=== PATIENT | female | born 1965 | race Caucasian/White ===

== ENCOUNTER 2024-01-19 08:02 | Outpatient (REF) | payer SELFPAY | END 2024-01-19 08:03 | disposition home or self-care (01) | LOC: HO.HAP 08:02 | PROVIDERS: Visit Provider Family Medicine | DX: Z13.89 Encounter for screening for other disorder (principal) ==

== ENCOUNTER 2024-07-23 12:37 | Outpatient (REF) | payer SELFPAY ==
--- OUTSIDE RECORDS SUMMARY | 2024-07-23 13:10 | XMS_ITS | Clinical Summary ---
Author Organization [address] [facility] Building Address [address] [place], [place] Phone Care Team Providers Care Clerk Of Works Name Role Phone Arti Griffiths DO Primary Care Provider [phone] Allergies No known active allergies Medications atorvastatin (LIPITOR) 20 mg tabletIndications:M ixed hyperlipidemia Take 1 tablet (20 mg total) by mouth 1 (one) time each day. 90 each 1 4 11/15/19 Active Active Problems Problem Noted Date Diagnosed Date Hyperlipidemia 06/15/2021 Hypothyroidism 08/24/2020 Encounters Date Type Department Care Team Description 05/18/2024 8:15 AM EST Telemedicine Internal Medicine - [address] [phone] Kay Foreman NP Mixed hyperlipidemia (Primary Dx); Hypothyroidism, unspecified type; Encounter for colorectal cancer screening 05/14/2024 Telephone Internal Medicine - [address] [phone] Arti Griffiths DO Results from Last 3 Months Immunizations Name Administration Dates Next Due Influenza Quadravalent, MDCK , 0.5ml, preservative free (Flucelvax) 6mo and older 04/08/2022,06/06/2021 Influenza trivalent, 0.5mL, preservative free (Fluarix; FluLaval; Fluzone) ages 6mo and older (Afluria) 3 years and older 03/12/2024 Influenza, Unspecified 03/10/2023 Moderna SARS-CoV-2 COVID-19, mRNA, LNP-S, preservative free 03/12/2024,07/19/2022,10/22/2021,2020,10/09/2020 Pfizer SARS-CoV-2 COVID-19, mRNA, LNP-S, preservative free 03/10/2023 Tdap Tetanus diptheria acell ular pertussis (Boostrix; Adacel) 7yo and older 06/18/2021,05/03/2011 Zoster recombinant (Shingrix ) 19yo and older 08/31/2021,06/11/2021 Surgical History Surgery Date Site/Laterality Comments HYSTERECTOMY 2003 PROCEDURE: HISTORICAL HYSTERECTOMY; COMMENT: Fibroids TUBAL LIGATION 1990 PROCEDURE: HISTORICAL TUBAL LIGATION OTHER SURGICAL HISTORY PROCEDURE: ME LIGJ DIVJ & STRIPPING SHORT SAPHENOUS VEIN CERVICAL BIOPSY W/ LOOP ELECTRODE EXCISION PROCEDURE: ME CONIZATION CERVIX W/WO D&C RPR ELTRD EXC; COMMENT: No cancer COLONOSCOPY 02/07/2015 PROCEDURE: HISTORICAL COLONOSCOPY Medical History Medical History Date Comments History of uterine fibroid DX:Hi story of uterine fibroid History of anemia DX:History of anemia; COMMENT: during HSV-2 infection DX:HSV-2 infecti on Bilateral hearing loss 04/16/2017 DX:Bilate ral hearing loss Varicose vein of leg 04/16/2017 DX:Varicose vein of leg Depression 05/14/2017 DX:Depression; C OMMENT: situational Meniere disease 05/14/2017 DX:Meniere disea se Abnormal Pap smear of cervix 05/14/2017 DX: Abnormal Pap smear of cervix; COMMENT: S/p colposcopy with leep Family History Medical History Relation Name Comments Other: MVA Brother 1 Other: Hyperlipidemia Brother 2 No Known Problems Brother 3 No Known Problems Brother 4 Depression Daughter Other: epilepsy Daughter Heart attack Father Colon cancer Mother Hypertension Mother Hyperthyroidism Mother Other: Myelofibrosis Mother S/p spl enectomy Diabetes Paternal Grandmother Depression Son Breast cancer Neg Hx Ovarian cancer Neg Hx Relation Name Status Comments Brother 1 Brother 2 Alive Brother 3 Alive Brother 4 Alive Daughter Alive Father Mother Paternal Grandmother Son Alive Social History Tobacco Use Types Packs/Day Years Used Date Smoking Tobacco: Never Smokeless Tobacco: Never Alcohol Use Standard Drinks/Week Comments Yes 0 (1 standard drink = 0.6 oz pur e alcohol) Housing Instability Answer Date Recorde d Are you worried that in the next 2 months you may not have stable housing? No 07/07/2024 Food Access & Nutrition Answer Date Rec orded Do you have access to a vari ety of food including fruits and vegetables? Yes 07/07/2024 Access to Healthcare Answer Date Record ed Within the last 3 months, ho w many times did you visit the emergency department for your medical care? 0 05/15/2024 Health Literacy Answer Date Recorded How often do you need to hav e someone help you when you read instructions, pamphlets, or other written material from your doctor or pharmacy? Never 05/15/2024 Caregiver: How often do you need to have someone help you when you read instructions, pamphlets, or other written material from your doctor or pharmacy? Not on file 05/15/2024 Financial Risk Answer Date Recorded How hard is it for you to pa y for the very basics like food, housing, medical care, and air conditioning / heating? Not very hard 07/07/2024 Transportation Answer Date Recorded Has the lack of transportati on kept you from meetings, work, or from getting things needed for daily living? No Has the lack of transportati on kept you from medical appointments or from getting medications? No 07/07/2024 Social Isolation Answer Date Recorded How often do you feel lonely or isolated from th ose around you? Never 05/15/2024 Food Risk Answer Date Recorded Within the past 12 months we worried whether our food would run out before we got money to buy more. Never true 07/07/2024 Within the past 12 months th e food we bought just didn't last and we didn't have money to get more. Never true 07/07/2024 Dependent Care Answer Date Recorded Do you need help finding or paying for care for your loved ones. For example, child nurse or elderly care for an older adult? No 05/15/2024 Education Answer Date Recorded Do you think completing more education or training, like finishing a GED, going to college, or learning a trade, would be helpful for you? No 05/15/2024 Employment and Income Answer Date Recor ded During the last four weeks, have you been actively looking for work? No 05/15/2024 Living Situation Answer Date Recorded What is your living situation? 0 07/07/2024 Comments Unknown Sex and Gender Information Value Date Recorded Sex Assigned at Not on file Legal Sex Female 11:33 PM EST Gender Identity Not on file Sexual Orientation Not on file Obstetrics History Last Filed Vital Signs Vital Sign Reading Time Taken Comments Blood Pressure 97/74 01/26/2024 1:04 PM EDT Pulse 73 01/26/2024 1:04 PM EDT Temperature - - Respiratory Rate - - Oxygen Saturation - - Inhaled Oxygen Concentration - - Weight 64.7 kg (142 lb 9.6 oz) 01/26/2024 1:04 P M EDT Height 162.6 cm (5' 4 ) 01/26/2024 1:04 PM EDT Body Mass Index 24.48 01/26/2024 1:04 PM EDT Plan of Treatment Upcoming Encounters Date Type Department Care Team (Late st Contact Info) Description 01/14/2025 8:00 AM EDT Office Visit [facility] [address] [place] [phone] Yaya Carcamo PA [address] [place] [address] 01/18/2025 9:00 AM EDT Appointment [facility] Endoscopy [address] [place] [phone] Yandel Bernstein MD [address] [address] Health Maintenance Due Date Last Done Comments Hepatitis B Vaccines (1 of 3 - 19+ 3-dose series) 01/06/1984 Cervical Cancer Screening: Pap Smear 1986 Colorectal Cancer Screening: Colonoscopy 05/12/2022 COVID-19 Vaccine ( season) 2024 03/12/2024, 03/10/2023, 03/07/2023, Additional history exists Depression Screening 07/07/2025 07/07/2024 Social Influencers of Health Screening 07/07/2025 07/07/2024 Breast Cancer Screening 02/16/2026 02/17/20, 02/12/2023, 01/25/2021, Additional history exists Cholesterol Screening (Lipid Panel) 03/12/2029 03/12/2024, 01/26/2024 DTaP,Tdap,and Td Vaccines (3 - Td or Tdap) 06/18/2031 06/18/2021, 05/03/2011 RSV Immunization Patients 60+ Years Old (1 - 1-dose 75+ series) 01/06/2040 Zoster Vaccines Completed 08/31/2021, 07/31, 06/11/2021 Influenza Vaccine Completed 03/12/2024, , 03/07/2023, Additional history exists Pneumococcal Vaccine: 50+ Years Completed 07/02/2024 Pneumococcal Vaccine: Pediatrics (0 to 5 Years) and At-Risk Patients (6 to 64 Years) Aged Out 07/02/2024 No longer eligible based on patient's age to complete this topic HIB Vaccines Aged Out No longer eligi ble based on patient's age to complete this topic HIV Screening Discontinued HPV Vaccines Aged Out No longer eligi ble based on patient's age to complete this topic Hepatitis A Vaccines Aged Out No long er eligible based on patient's age to complete this topic Hepatitis C Screening Discontinued IPV Vaccines Aged Out No longer eligi ble based on patient's age to complete this topic MMR Vaccines Aged Out No longer eligi ble based on patient's age to complete this topic Meningococcal ACWY Vaccine Aged Out N o longer eligible based on patient's age to complete this topic Meningococcal B Vacine Aged Out No lo nger eligible based on patient's age to complete this topic RSV Immunization Patients Under 20 months Aged Out No longer eligible based on patient's age to complete this topic Varicella Vaccines Aged Out No longer eligible based on patient's age to complete this topic Procedures Procedure Name Priority Date/Time Associated Diagnosis Comments TRIIODOTHYRONINE FREE Routine 06/25/2024 9:49 AM EST Hypothyroidism, unspecified type FREE THYROXINE WITH REFLEX TO FREE TRIIODOTHYRONINE Routine 06/25/2024 9:49 AM EST Hypothyroidism, unspecified type THYROID STIMULATING HORMONE WITH REFLEX TO FREE T4 AND FREE T3 Routine 06/25/2024 9:49 AM EST Hypothyroidism, unspecified type COMPREHENSIVE METABOLIC PANEL Routine 06/25/2024 9:49 AM EST Mixed hyperlipidemia KATIA SCREENING DIGITAL Routine 02/17/2024 1:36 PM EDT Encounter for screening mammogram for malignant neoplasm of breast from Last 3 Months or Most Recently Relevant to Health Maintenance Results * (ABNORMAL) Thyroid stimulating hormone with reflex to free t4 and free t3 (06/25/2024 9:49 AM EST) TSH 4.52(H) 0.40 - 4.00 mcIU/mL LAB CHEMISTRY METHOD 06/25/2024 5:00 PM EST [facility] Blood Venous blood specimen / Unknown Venipuncture / Unknown 06/25/2024 9:49 AM EST 06/25/2024 9:49 AM EST us Kay Foreman NP LAB BLOOD ORDERABLES Final Resul t Performing Organization Address [facility]/ZIP Co de Phone Number [facility] [address] [place] [address], [place] [phone] * Free thyroxine with reflex to free triiodothyronine (06/25/2024 9:49 AM EST) Free T4 0.87 0.70 - 1.80 ng/dL LAB CHEMISTRY METHOD 06/25/2024 5:25 PM EST [facility] Blood Venous blood specimen / Unknown Venipuncture / Unknown 06/25/2024 9:49 AM EST 06/25/2024 9:49 AM EST us Kay Foreman NP LAB BLOOD ORDERABLES Final Resul t [facility] [address] [place] [address], * Triiodothyronine free (06/25/2024 9:49 AM EST) T3, Free 283 230 - 420 pcg/dL LAB CHEMISTRY METHOD 06/25/2024 5:[address] [facility] Blood Venous blood specimen / Unknown Venipuncture / Unknown 06/25/2024 9:49 AM EST 06/25/2024 9:49 AM EST Kay Foreman NP LAB BLOOD ORDERABLES Final Resul t [facility] [address] [place] [address], * Comprehensive metabolic panel (06/25/2024 9:49 AM EST) [facility] Sodium 136 133 - 145 mmol/L LAB CHEMISTRY METHOD 06/25/2024 5:[address] [facility] Potassium 4.0 3.5 - 5.5 mmol/L LAB CHEMISTRY METHOD 06/25/2024 5:[address] [facility] Chloride 101 96 - 110 mmol/L LAB CHEMISTRY METHOD 06/25/2024 5:[address] [facility] CO2 31 21 - 32 mmol/L LAB CHEMISTRY METHOD 06/25/2024 5:[address] [facility] Anion Gap 4 3 - 11 LAB CHEMISTRY METHOD 06/25/2024 5:[address] [facility] Glucose 93 70 - 100 mg/dL LAB CHEMISTRY METHOD 06/25/2024 5:[address] [facility] BUN 12 5 - 25 mg/dL LAB CHEMISTRY METHOD 06/25/2024 5:[address] [facility] Creatinine 0.56 0.50 - 1.10 mg/dL LAB CHEMISTRY METHOD 06/25/2024 5:[address] [facility] eGFR 105 >=60 mL/min/1. 73m2 LAB CHEMISTRY METHOD 06/25/2024 5:[address] [facility] Comment:Calculation based on the??Chronic Kidney Disease Epidemiology Collaboration (CKD-EPI) equation refit??without adjustment for race. BUN/Creatinine Ratio 21.4 LAB CHEMISTRY METHOD 06/25/2024 5:[address] [facility] Calcium 9.0 8.5 - 10.5 mg/dL LAB CHEMISTRY METHOD 06/25/2024 5:[address] [facility] AST (SGOT) 22 10 - 42 unit/L LAB CHEMISTRY METHOD 06/25/2024 5:[address] [facility] ALT (SGPT) 24 10 - 60 unit/L LAB CHEMISTRY METHOD 06/25/2024 5:[address] [facility] Alkaline Phosphatase 55 42 - 121 unit/L LAB CHEMISTRY METHOD 06/25/2024 5:[address] [facility] Total Protein 7.1 6.0 - 8.0 g/dL LAB CHEMISTRY METHOD 06/25/2024 5:[address] [facility] Albumin 4.3 3.2 - 5.0 g/dL LAB CHEMISTRY METHOD 06/25/2024 5:[address] [facility] Total Bilirubin 0.6 0.0 - 1.4 mg/dL LAB CHEMISTRY METHOD 06/25/2024 5:[address] [facility] Blood Venous blood specimen / Unknown Venipuncture / Unknown 06/25/2024 9:49 AM EST 06/25/2024 9:49 AM EST us Kay Foreman NP LAB BLOOD ORDERABLES Final Resul t [facility] [address] [place] [address], * KATIA SCREENING DIGITAL (02/17/2024 1:36 PM EDT) Anatomical Region Laterality Modality Mammography 02/17/2024 7:43 AM EDT Narrative 02/17/2024 1:36 PM EDT [facility] Diagnostic Imaging Department [address] [place] [address] Patient: ??JAZMIN JACK ?/Age/Sex: 1965 - 59 - F Unit#: ??[id number] ? Location/Status: ??SPDIMAM/REG CLI ? Mnemonic/Ordering Site: ??DIGSC/SPMAM Ordering Physician: ??PATSY LEON MD Katia Screening Digital - 02/17/24 - Report Status:Signed EXAM: [facility] Screening Digital EXAM DATE AND TIME: 02/17/2024 8:54 AM HISTORY: ??Screening. 30 pound weight loss. COMPARISON: ??02/12/23, 02/08/22, 08/03/21, 01/25/21, 01/20/20 TECHNIQUE: Bilateral digital breast tomosynthesis was performed in the CC and MLO projections. Computer aided detection with [employer] 3D 3.1 was employed. TISSUE DENSITY: b. There are scattered areas of fibroglandular density. FINDINGS: A small area of possible architectural distortion is seen in the upper outer left breast, anterior depth. CC and MLO spot compression tomosynthesis views and full lateral tomosynthesis views are recommended for further assessment. No grouped microcalcifications are seen. The skin and vascularity are unremarkable. IMPRESSION: 1. Possible architectural distortion in the left breast, for which additional views are recommended. The patient will be called back. 2. Stable mammographic appearance of the right breast. No evidence of malignancy is seen. BI-RADS: ??Category 0: Incomplete - Need Additional Imaging Evaluation RECOMMENDATION(S): 1: Special mammographic view(s) needed LEFT Mammogram performed at [facility] [place] [address] Dictating Physician: ??DESTINY HERNANDES MD Electronically Signed by: ??DESTINY HERNANDES MD Dic Date/Time: ??02/17/24 1332 Sign date/Time: ??02/17/24 1336 Procedure Note Destiny Hernandes MD - 03/17/2024 [facility] Diagnostic Imaging Department [address] [place] [address] Patient: JAZMIN JACK Myriam /Age/Sex: 1965 - 59 - F Unit#: [id number] Location/Status: [facility] CLI Mnemonic/Ordering Site: [facility] Ordering Physician: PATSY LEON MD [facility] Screening Digital - 02/17/24 - Report Status:Signed EXAM: [facility] Screening Digital EXAM DATE AND TIME: 02/17/2024 8:54 AM HISTORY: Screening. 30 pound weight loss. COMPARISON: 02/12/23, 02/08/22, 08/03/21, 01/25/21, 01/20/20 TECHNIQUE: Bilateral digital breast tomosynthesis was performed in the CCand MLO projections. Computer aided detection with iCAD [employer] AI 3D 3.1was employed. TISSUE DENSITY: b. There are scattered areas of fibroglandular density. FINDINGS: A small area of possible architectural distortion is seen in the upperouter left breast, anterior depth. CC and MLO spot compression tomosynthesisviews and full lateral tomosynthesis views are recommended for further assessment. No grouped microcalcifications are seen. The skin and vascularity are unremarkable. IMPRESSION: 1. Possible architectural distortion in the left breast, for whichadditional views are recommended. The patient will be called back. 2. Stable mammographic appearance of the right breast. No evidence of malignancy is seen. BI-RADS: Category 0: Incomplete - Need Additional Imaging Evaluation RECOMMENDATION(S): 1: Special mammographic view(s) needed LEFT Mammogram performed at [facility] [place] [address] Dictating Physician: DESTINY HERNANDES MD Electronically Signed by: DESTINY HERNANDES MD Dic Date/Time: 02/17/24 1332 Sign date/Time: 02/17/24 1336 Patsy Loen MD IMG BI PROCEDURES Final Result from Last 3 Months or Most Recently Relevant to Health Maintenance [place] [address] [address] [place] [address] Care Teams Clerk Of Works Relationship Specialty Start Date End Date Liset GriffithsmanDO myriam [address] [place] [address] PCP - General 03/09/24
== END 2024-07-23 12:38 | disposition home or self-care (01) ==
LOC: HO.HAP 12:37
PROVIDERS: Visit Provider Family Medicine
DX: Z13.89 Encounter for screening for other disorder (principal)

== ENCOUNTER 2024-10-21 09:27 | Outpatient (REF) | payer SELFPAY ==
--- OUTSIDE RECORDS SUMMARY | 2024-10-21 09:43 | XMS_ITS | Clinical Summary ---
Author Organization [address] [facility] Building Address [address] [place], [place] Phone Care Team Providers Care Audience Coordinator Name Role Phone Arti Griffiths DO Primary Care Provider [phone] Allergies No known active allergies Medications atorvastatin (LIPITOR) 20 mg tabletIndications:M ixed hyperlipidemia Take 1 tablet (20 mg total) by mouth 1 (one) time each day. 90 each 1 4 11/15/19 Active Active Problems Problem Noted Date Diagnosed Date Hyperlipidemia 06/15/2021 Hypothyroidism 08/24/2020 Encounters Date Type Department Care Team Description 10/15/2024 Telephone Internal Medicine - [address] [phone] Arti Griffiths DO orders from Last 3 Months Immunizations Name Administration [...] HISTORICAL TUBAL LIGATION OTHER SURGICAL HISTORY PROCEDURE: LA LIGJ DIVJ & STRIPPING SHORT SAPHENOUS VEIN CERVICAL BIOPSY W/ LOOP ELECTRODE EXCISION PROCEDURE: LA CONIZATION CERVIX W/WO D&C RPR ELTRD EXC; [...] for your loved ones. For example, child care worker or elderly care for an older adult? [...] Description 01/14/2025 8:00 AM EDT [facility] [address] [place] [phone] Yaya Carcamo PA [address] [place] [address] 01/18/2025 9:[address] [facility] Endoscopy [address] [place] [phone] Yandel Bernstein MD [address] [address] Health Maintenance Due Date Last Done Comments Hepatitis B Vaccines (1 of 3 - 19+ 3-dose series) 01/06/1984 Cervical Cancer Screening: Pap Smear 1986 Colorectal Cancer Screening: Colonoscopy 05/12/2022 COVID-19 Vaccine ( season) 2024 03/12/2024, 03/10/2023, 03/07/2023, Additional history exists Depression Screening 07/07/2025 07/07/2024 Social Influencers of Health Screening 07/07/2025 07/07/2024 Breast Cancer Screening 02/16/2026 02/17/20 24, 02/12/2023, 01/25/2021, Additional history exists Cholesterol Screening (Lipid Panel) 03/12/2029 03/12/2024, 01/26/2024 DTaP,Tdap,and Td Vaccines (3 - Td or Tdap) 06/18/2031 06/18/2021, 05/03/2011 RSV Immunization Adult Patients (1 - 1-dose 75+ series) 01/06/2040 Zoster [...] age to complete this topic Meningococcal B Vaccine Aged Out No l onger eligible based on patient's age to complete this topic RSV Immunization Patients Under 20 months Aged Out No longer eligible based on patient's age to complete this topic Varicella Vaccines Aged Out No longer eligible based on patient's age to complete this topic Procedures Procedure Name Priority Date/Time Associated Diagnosis Comments [facility] SCREENING DIGITAL Routine 02/17/2024 1:36 PM EDT Encounter for screening mammogram for malignant neoplasm of breast from Last 3 Months or Most Recently Relevant to Health Maintenance Results * KATIA SCREENING DIGITAL (02/17/2024 1:36 PM EDT) Anatomical Region Laterality Modality Mammography 02/17/2024 7:43 AM EDT Narrative 02/17/2024 1:[address] [facility] Diagnostic Imaging Department [address] [place] [address] Patient: ??HARMONY JACK ?/Age/Sex: 1965 - 59 - F Unit#: ??[id number] ? Location/Status: ??SPDIMAM/REG CLI ? Mnemonic/Ordering Site: ??DIGSC/SPMAM Ordering Physician: ??JAYRO LEON MD Katia Screening Digital - 02/17/24 - Report Status:Signed EXAM: [facility] Screening Digital EXAM DATE AND TIME: 02/17/2024 8:54 AM HISTORY: ??Screening. 30 pound weight loss. COMPARISON: ??02/12/23, 02/08/22, 08/03/21, 01/25/21, 01/20/20 TECHNIQUE: Bilateral digital breast tomosynthesis was performed in the CC and MLO projections. Computer aided detection with [employer] 3D 3.1 was employed. TISSUE DENSITY: b. [...] Mamm[facility] at [facility] [address] [place] [address] Dictating Physician: ??JOVANA HERNANDES MD Electronically Signed by: ??JOVANA HERNANDES MD Dic Date/Time: ??02/17/24 1332 Sign date/Time: ??02/17/24 1336 Procedure Note Jovana Hernandes MD - 03/17/2024 [facility] Diagnostic Imaging Department [address] [place] [address] Patient: HARMONY JACK Karsten /Age/Sex: 1965 - 59 - F Unit#: [id number] [facility]Ordering Site: [facility] Ordering Physician: JAYRO LEON MD [facility] Screening Digital - 02/17/24 - Report Status:Signed EXAM: [facility] Screening Digital EXAM DATE AND TIME: 02/17/2024 8:54 AM HISTORY: Screening. 30 pound weight loss. COMPARISON: 02/12/23, 02/08/22, 08/03/21, 01/25/21, 01/20/20 TECHNIQUE: Bilateral digital breast tomosynthesis was performed in the CCand MLO projections. Computer aided detection with iCAD [employer] AI 3D 3.1was employed. TISSUE DENSITY: b. [...] Mamm[facility] performed at [facility] [address] [address] Dictating Physician: JOVANA HERNANDES MD Electronically Signed by: JOVANA HERNANDES MD Dic Date/Time: 02/17/24 1332 Sign date/Time: 02/17/24 1336 Jayro Leon MD IMG BI PROCEDURES Final Result from Last 3 Months or Most Recently Relevant to Health Maintenance Insurance [facility] Care Teams Audience Coordinator Relationship Specialty Start Date End Date Arti Griffiths DO [address] [place] [address] PCP - General 03/09/24
--- OUTSIDE RECORDS SUMMARY | 2024-10-21 09:43 | XMS_ITS | Encounter Summary ---
Author Organization [facility] Address [address] [place] [address] Care Team Providers Care Pest Control Operator Name Role Phone Arti Griffiths DO Primary Care Provider [phone] Reason for Referral * Consultation (Routine) - Closed Specialty Diagnoses / Procedures Referred By Yasmeen lockwood Referred To Contact Audiology Diagnoses Encounter for hearing examination, unspecified whether abnormal findings Kay Foreman NP [address] [place] [address] Phone: tel: fax: [facility] - Audiology [address] [address] Phone: tel: fax: Referral ID Status Reason Start Date Expiration Date V isits Requested Visits Authorized [id number] Closed Specialty Services Required 10/15/2024 10/15/2025 1 1 Reason for Visit * Reason Onset Date Comments orders 10/15/2024 Encounter Details Date Type Department Care Team (Late st Contact Info) Description 10/15/2024 [facility] [address] [place] [phone] Arti Griffiths DO [address] [place] [address] orders Social History Tobacco Use Types Packs/Day Years [...] care for your loved ones. For example, childcare director or elderly care for an older adult? [...] on file Sexual Orientation Not on file documented as of this encounter Progress Notes * Kay Foreman NP - 10/15/2024 11:55 AM EDT Signed * Afua Finley MA - 10/15/2024 9:44 AM EDT Referral pending. * Elvi Portillo - 10/15/2024 9:35 AM EDT Pt is requesting orders for hearing test and ear cleaning. [facility] please fax to [phone] attn. Maria Elena. any questions please call pt at [phone] documented in this encounter Plan of Treatment Upcoming Encounters Date Type Department Care Team (Late st Contact Info) Description 01/14/2025 8:00 AM EDT Office Visit Internal Medicine - [facility] [address] [place] [address] Yaya Carcamo PA [address] [place] [address] 01/18/2025 9:00 AM EDT Appointment [facility] Endoscopy [address] [place] [phone] Yandel Bernstein MD [address] [place] [address] Scheduled Referrals Name Type Priority Associated Diagnoses Order Schedule Ambulatory referral to Audiology Outpatient Referral Routine Encounter for hearing examination, unspecified whether abnormal findings 1 Occurrences starting 10/15/2024 until 10/15/2025 documented as of this encounter Visit Diagnoses Diagnosis Encounter for hearing examination, unspecified whether abnormal findings- Primary documented in this encounter Additional Health Concerns Assessment Noted Time PHQ-9 Depression Total Score: 0 07/07/19 25 12:44 PM EST documented as of this encounter Care Teams Pest Control Operator Relationship Specialty Start Date End Date Arti Griffiths DO [address] [place] [address] PCP - General 03/09/24 documented as of this encounter
--- NOTE | 2024-10-21 10:05 | MHC.AU.HA3 ---
Hearing Instrument Follow-Up- Binaural Date of Visit: 10/21/24 Right Ear: Reji, Model, Color, Serial Number: Seven [id number] R, harley layton S#[id number] Broom Worker Repair Warranty: 01/13/2027 Broom Worker Loss and Damage Warranty: 01/13/2027 [facility] Service Plan: 12/31/24 Battery Size: Rechargeable Rental Car Deliverer/Slim Tube: 1 M Earmold/Dome/CShell/SlimTip:canal lock slimtip S#[id number] Warranty 04/13/2024 Type of Wax Guard: cerustop Dispensed By: [facility] Date of Fittin01/01/24 Left Ear: Reji, , Color, Serial Number: Seven Pandao [id number] R, harley layton [id number] Broom Worker Repair Warranty: 01/13/2027 Broom Worker Loss and Damage Warranty: 01/13/2027 [facility] Service Plan: 12/31/24 Battery Size: Rechargeable Rental Car Deliverer/Slim Tube: 1 M Earmold/Dome/CShell/SlimTip: canal lock slimtip [id number] Warranty 04/13/2024 Type of Wax Guard: cerustop Dispensed By: [facility] Date of Fittin01/01/24 Follow-Up Summary: Jazmin reports feeling that something is wrong with the bluetooth, finds streaming coming through louder on the left which is a problem as that is her worse ear and hearing is less clear. Cleaned and checked aids, replaced wax guards. Found right medical record retrieval specialist defective. Replaced medical record retrieval specialist. Listening check positive both sides. Increased overall gain slightly at pt request. Improvement reported. Tested streaming, much better. Recommendations: Recommendations: Hearing instrument follow-up or maintenance as needed. Diagnosis Code(s): Primary Diagnosis: H90.3 Bilateral Sensorineural Hearing Loss Signature: Provider: Angelica Cameron, [facility]
== END 2024-10-21 09:28 | disposition home or self-care (01) ==
LOC: HO.HAP 09:27
PROVIDERS: Visit Provider Family Medicine
DX: Z46.1 Encounter for fitting and adjustment of hearing aid (principal); H90.3 Sensorineural hearing loss, bilateral
CPT/HCPCS: V5267

== ENCOUNTER 2024-11-04 08:06 | Outpatient (REF) | payer BC, SELFPAY ==
--- OUTSIDE RECORDS SUMMARY | 2024-11-04 08:15 | XMS_ITS | Encounter Summary ---
Author Organization [facility] Address [address] [place] [address] Care Team Providers Care Oil Heat Technician Name Role Phone Arti Griffiths DO Primary Care Provider [phone] Reason for Referral * Consultation (Routine) - Closed Specialty Diagnoses / Procedures Referred By Yasmeen lockwood Referred To Contact Audiology Diagnoses Encounter for hearing examination, unspecified whether abnormal findings Kay Foreman NP [address] [place] [address] Phone: tel: fax: [facility] - Audiology [address] [address] Phone: tel: fax: Referral ID Status Reason Start Date Expiration Date V isits Requested Visits Authorized [id number] Closed Specialty Services Required 10/15/2024 10/15/2025 1 1 Reason for Visit * Reason Onset Date Comments orders 10/15/2024 Encounter Details Date Type Department Care Team (Late st Contact Info) Description 10/15/2024 [facility] [address] [place] [phone] Arti Griffiths DO [address] [place] [address] orders Social History Tobacco Use Types Packs/Day [...] for your loved ones. For example, child health associate or elderly care for an older adult? [...] orders for hearing test and ear cleaning. [facility] please fax to [phone] attn. Maria Elena. any questions please call pt at [phone] documented in this encounter Plan of Treatment Upcoming Encounters Date Type Department Care Team (Late st Contact Info) Description 01/14/2025 8:00 AM EDT Office Visit Internal Medicine - [facility] [address] [place] [address] Yaya Carcamo PA [address] [place] [address] 01/18/2025 9:00 AM EDT Appointment [facility] Endoscopy [address] [place] [phone] Yandel Bernstein MD [address] [place] [address] Scheduled Referrals Name Type Priority Associated Diagnoses [...] documented as of this encounter Care Teams Oil Heat Technician Relationship Specialty Start Date End Date Arti Griffiths DO [address] [place] [address] PCP - General 03/09/24 documented as of this encounter
== END 2024-11-04 08:07 | disposition home or self-care (01) ==
LOC: HO.SH 08:06
PROVIDERS: Visit Provider Nurse Practitioner
DX: Z01.118 Encounter for examination of ears and hearing with other abnormal findings (principal); H90.3 Sensorineural hearing loss, bilateral
CPT/HCPCS: 92552; 92556

== ENCOUNTER 2025-02-04 08:00 | Outpatient (REF) | payer SELFPAY ==
--- OUTSIDE RECORDS SUMMARY | 2025-02-04 08:03 | XMS_ITS | Clinical Summary ---
Author Organization [place] [address] [facility] Building Address [address] [facility] [place] [address] Phone Care Team Providers Care Keno Writer/Runner Name Role Phone TundeArti Primary Care Provider [phone] Allergies No known active allergies Medications polyethylene glycol (Golytely) 236-22.74-6.74 -5.86 gram solution Take 4L by mouth once for one dose. May substitue any PEG. Starting at 2PM the day before your procedure drink 1 8oz glasses at your own pace until you complete half of the gallon. Finish 2nd half of the gallon at 8PM. 4000 mL 025 Active bisacodyL (DULCOLAX) 5 mg EC tablet Take 2 tablets by mouth right before beginning bowel prep. See instructions provided by the office 2 tablet 025 Active PEG 3350 (GLYCOLAX/MIRALAX ) 4 gram packet Take by mouth. Active atorvastatin (LIPITOR) 20 mg tabletIndications :Mixed hyperlipidemia TAKE 1 TABLET (20 MG TOTAL) BY MOUTH ONCE DAILY 90 tablet 1 025 Active atorvastatin (LIPITOR) 20 mg tabletIndications :Mixed hyperlipidemia TAKE 1 TABLET (20 MG TOTAL) BY MOUTH ONE TIME EACH DAY 30 tablet 025 2024 Discontinued Active Problems Problem Noted Date Diagnosed Date Hyperlipidemia 06/15/2021 Hypothyroidism 08/24/2020 Encounters Date Type Department Care Team Description 01/14/2025 8:48 AM EDT - 01/14/2025 11:59 PM EDT Hospital Encounter [facility] [address] [place], [place] [phone] Neck stiffness Discharge Disposition: Home or Self Care 01/14/2025 8:00 AM EDT [facility] [address] [place], [place] [phone] Yaya Carcamo PA Encounter for screening mammogram for malignant neoplasm of breast (Primary Dx); Mixed hyperlipidemia; Hypothyroidism, unspecified type; Neck stiffness; Health maintenance examination 01/13/2025 9:27 AM EDT Anesthesia Event [facility] [address] [place] [address] Pancho Sheriff DO 01/13/2025 7:53 AM EDT - 01/13/2025 11:59 PM EDT Hospital Encounter [facility] End[facility] [address] [place] [address] Yandel Bernstein MD Steele, Matthew G, CRNA Korobkov, Vitaliy, DO Colon cancer screening Discharge Disposition: Home or Self Care from Last 3 Months Immunizations Name Administration [...] HISTORICAL TUBAL LIGATION OTHER SURGICAL HISTORY PROCEDURE: [place] LIGJ DIVJ & STRIPPING SHORT SAPHENOUS VEIN CERVICAL BIOPSY W/ LOOP ELECTRODE EXCISION PROCEDURE: [place] CONIZATION CERVIX W/WO D&C RPR ELTRD EXC; [...] of cervix; COMMENT: S/p colposcopy with leep Seizures (CMS/[facility] V24, CMS/[facility] V28) as a child Arthritis Family History Medical History Relation Name Comments [...] Date Smoking Tobacco: Never Smokeless Tobacco: Never Tobacco Cessation:Counseling Given: Not Answered Alcohol Use Standard Drinks/Week Comments Yes 0 [...] What is your living situation? 0 07/07/2024 Interpersonal Safety Answer Date Record ed Physical Abuse 01/13/2025 Verbal Abuse 01/13/2025 Comments No Sex and Gender Information Value Date Recorded Sex Assigned at Female 01/13/2025 7:50 AM EDT Legal Sex Female 11:33 PM EST Gender Identity Female 01/13/2025 7:50 AM EDT Sexual Orientation Straight 01/13/2025 7: 50 AM EDT Obstetrics History Last Filed Vital Signs Vital Sign Reading Time Taken Comments Blood Pressure 110/66 01/14/2025 7:54 AM EDT Pulse 67 01/14/2025 7:54 AM EDT Temperature 36.2 C (97.2 F) 01/13/2025 9:43 AM EDT Respiratory Rate 16 01/14/2025 7:54 AM EDT Oxygen Saturation 99% 01/13/2025 10:03 AM EDT Inhaled Oxygen Concentration - - Weight 62.7 kg (138 lb 3.2 oz) 01/14/2025 7:54 A M EDT Height 162.6 cm (5' 4 ) 01/13/2025 8:46 AM EDT Body Mass Index 23.72 01/13/2025 8:46 AM EDT Plan of Treatment Upcoming Encounters Date Type Department Care Team (Late st Contact Info) Description 02/15/2025 7:30 AM EDT Evaluation [address] [phone] Juliana Montero, PT 07/19/2025 8:30 AM EST Office Visit Internal Medicine - [facility] [address] [place] [phone] Yaya Carcamo PA [address] [place] [address] Health Maintenance Due Date Last Done Comments Cervical Cancer Screening: Pap Smear 1986 COVID-19 Vaccine ( season) 2025 03/12/2024, 03/10/2023, 03/07/2023, Additional history exists Influenza Vaccine (#1) 2025 , 03/10/2023, 03/07/2023, Additional history exists Social Influencers of Health Screening 07/07/2025 07/07/2024 Breast Cancer Screening 02/16/2026 02/17/20 24, 02/12/2023, 01/25/2021, Additional history exists Cholesterol Screening (Lipid Panel) 01/14/2030 01/14/2025, 03/12/2024, 01/26/2024 DTaP,Tdap,and Td Vaccines (3 - Td or Tdap) 06/18/2031 06/18/2021, 05/03/2011 Colorectal Cancer Screening: Colonoscopy 01/13/2035 01/13/2025 RSV Immunization Adult Patients (1 - 1-dose 75+ series) 01/06/2040 Zoster Vaccines Completed 08/31/2021, 07/31, 06/11/2021 Pneumococcal Vaccine: 50+ Years Completed 07/02/2024 Depression Screening Completed 07/07/2024 HIB Vaccines Aged Out No longer eligi ble based on patient's age to complete this topic HIV Screening Discontinued HPV Vaccines Aged Out No longer eligi ble based on patient's age to complete this topic Hepatitis A Vaccines Aged Out No long er eligible based on patient's age to complete this topic Hepatitis B Vaccines Aged Out No long er eligible [...] Procedure Name Priority Date/Time Associated Diagnosis Comments XR CERVICAL SPINE 4-5 VIEWS Routine 01/14/2025 8:57 AM EDT Neck stiffness TRIIODOTHYRONINE FREE Routine 01/14/2025 8:45 AM EDT Hypothyroidism, unspecified type FREE THYROXINE WITH REFLEX TO FREE TRIIODOTHYRONINE Routine 01/14/2025 8:45 AM EDT Hypothyroidism, unspecified type LIPID PANEL WITH REFLEX TO DIRECT LDL Routine 01/14/2025 8:45 AM EDT Mixed hyperlipidemia COMPREHENSIVE METABOLIC PANEL Routine 01/14/2025 8:45 AM EDT Mixed hyperlipidemia THYROID STIMULATING HORMONE WITH REFLEX TO FREE T4 AND FREE T3 Routine 01/14/2025 8:45 AM EDT Hypothyroidism, unspecified type COLONOSCOPY Routine 01/13/2025 9:42 AM EDT Colon cancer screening KATIA SCREENING DIGITAL Routine 02/17/2024 1:36 PM EDT Encounter for screening mammogram for malignant neoplasm of breast from Last 3 Months or Most Recently Relevant to Health Maintenance Results * XR Cervical Spine 4-5 Views (01/14/2025 8:57 AM EDT) Anatomical Region Laterality Modality Spine, C-spine Radiographic Sissy ging 01/14/2025 9:00 AM EDT Impressions 01/14/2025 9:04 AM EDT Multilevel degenerative changes. POS - [id number] -------- FINAL REPORT -------- Dictated By: Anna Roger Dictated Date: 01/14/2025 09:00 ET Assigned Physician: Anna Roger Reviewed and Electronically Signed By: Anna Roger Signed Date: 01/14/2025 09:04 ET Workstation ID: [id number] Transcribed By: Self Edit Transcribed Date: 01/14/2025 09:00 ET Narrative 01/14/2025 9:04 AM EDT EXAM: Cervical spine x-ray HISTORY: Neck pain and neck stiffness. No known trauma. COMPARISON: None FINDINGS: 4 views performed. Cervical spine is visualized through the upper aspect of T1 on the lateral projection. No compression deformities. Loss of the normal cervical lordosis. Severe disc space narrowing at C6-7 and moderate at C4-5 and C5-6 with mild anterior endplate spurring at all 3 levels. Multilevel uncovertebral spurring. On the right, minimal neural foraminal encroachment at C4-5 through C6-7. On the left, mild neural foraminal encroachment at C4-5 and C7-T1. Atlantoaxial distance is within normal limits. No abnormal thickening of the prevertebral soft tissues. Procedure Note Anna Roger MD - 01/14/2025 EXAM: Cervical spine x-ray HISTORY: Neck pain and neck stiffness. No known trauma. COMPARISON: None FINDINGS: 4 views performed. Cervical spine is visualized through the upper aspect of T1 on the lateralprojection. No compression deformities. Loss of the normal cervicallordosis. Severe disc space narrowing at C6-7 and moderate at C4-5 and C5-6 withmild anterior endplate spurring at all 3 levels. Multilevel uncovertebralspurring. On the right, minimal neural foraminal encroachment at C4-5 through C6-7.On the left, mild neural foraminal encroachment at C4-5 and C7-T1. Atlantoaxial distance is within normal limits. No abnormal thickening ofthe prevertebral soft tissues. IMPRESSION: Multilevel degenerative changes. POS - [id number] -------- FINAL REPORT -------- Dictated By: Anna Roger Dictated Date: 01/14/2025 09:00 ET Assigned Physician: Anna Roger Reviewed and Electronically Signed By: Anna Roger Signed Date: 01/14/2025 09:04 ET Workstation ID: [id number] Transcribed By: Self Edit Transcribed Date: 01/14/2025 09:00 ET Yaya JACOB IMG XR PROCEDURES Final Result * (ABNORMAL) Thyroid stimulating hormone with reflex to free t4 and free t3 (01/14/2025 8:45 AM EDT) TSH 4.11(H) 0.40 - 4.00 mcIU/mL LAB CHEMISTRY METHOD 01/14/2025 2:43 PM EDT [facility] ([facility]) [facility] Blood Venous blood specimen / Unknown Venipuncture / Unknown 01/14/2025 8:45 AM EDT 01/14/2025 8:45 AM EDT Yaya JACOB LAB BLOOD ORDERABLES Fi nal Result [facility] [address] [place] [address], [place] [phone] * Free thyroxine with reflex to free triiodothyronine (01/14/2025 8:45 AM EDT) Free T4 0.96 0.70 - 1.80 ng/dL LAB CHEMISTRY METHOD 01/14/2025 3:10 PM EDT [facility] Blood Venous blood specimen / Unknown Venipuncture / Unknown 01/14/2025 8:45 AM EDT 01/14/2025 8:45 AM EDT Yaya JACOB LAB BLOOD ORDERABLES Fi nal Result [facility] [address] [place] [address], [place] [phone] * Lipid panel with reflex to direct LDL (01/14/2025 8:45 AM EDT) Cholesterol 152 0 - 200 mg/dL LAB CHEMISTRY METHOD 01/14/2025 1:48 PM EDT [facility] Triglycerides 67 0 - 150 mg/dL LAB CHEMISTRY METHOD 01/14/2025 1:48 PM EDT [facility] HDL 90 >=40 mg/dL LAB CHEMISTRY METHOD 01/14/2025 1:48 PM EDT [facility] LDL Calculated 49 0 - 100 mg/dL LAB CHEMISTRY METHOD 01/14/2025 1:48 PM EDT [facility] Comment:Estimated LDL Calcul ated using equation: Total cholesterol - HDL cholesterol - (Triglycerides/5) VLDL Cholesterol Dax 13.4 mg/dL LAB CHEMISTRY METHOD 01/14/2025 1:48 PM EDT [facility] Non HDL Chol. (LDL+VLDL) 62 <145 mg/dL LAB CHEMISTRY METHOD 01/14/2025 1:48 PM EDT [facility] Chol/HDL Ratio 1.7 0.0 - 4.4 LAB CHEMISTRY METHOD 01/14/2025 1:48 PM EDT [facility] Blood Venous blood specimen / Unknown Venipuncture / Unknown 01/14/2025 8:45 AM EDT 01/14/2025 8:45 AM EDT Yaya JACOB LAB BLOOD ORDERABLES Fi nal Result Performing Organization Address City/[facility]/ZIP Co de Phone Number [facility] [address] [place] [address], [place] [phone] * Triiodothyronine free (01/14/2025 8:45 AM EDT) Pathologist [facility] T3, Free [phone] - 420 pcg/dL LAB CHEMISTRY METHOD 01/14/2025 4:17 PM EDT [facility] Blood Venous blood specimen / Unknown Venipuncture / Unknown 01/14/2025 8:45 AM EDT 01/14/2025 8:45 AM EDT Yaya JACOB LAB BLOOD ORDERABLES Fi nal Result Performing Organization Address [facility] Co de Phone Number [facility] [address] [place] [address], [place] [phone] * Comprehensive metabolic panel (01/14/2025 8:45 AM EDT) Sodium 139 133 - 145 mmol/L LAB CHEMISTRY METHOD 01/14/2025 1:47 PM EDT [facility] Potassium 3.9 3.5 - 5.5 mmol/L LAB CHEMISTRY METHOD 01/14/2025 1:47 PM EDT [facility] Chloride 105 96 - 110 mmol/L LAB CHEMISTRY METHOD 01/14/2025 1:47 PM EDT [facility] CO2 31 21 - 32 mmol/L LAB CHEMISTRY METHOD 01/14/2025 1:47 PM [facility] Anion Gap 3 3 - 11 LAB CHEMISTRY METHOD 01/14/2025 1:47 PM [facility] Glucose 84 70 - 100 mg/dL LAB CHEMISTRY METHOD 01/14/2025 1:47 PM [facility] BUN 13 5 - 25 mg/dL LAB CHEMISTRY METHOD 01/14/2025 1:47 PM [facility] Creatinine 0.62 0.50 - 1.10 mg/dL LAB CHEMISTRY METHOD 01/14/2025 1:47 PM [facility] eGFR 102 >=60 mL/min/1. 73m2 LAB CHEMISTRY METHOD 01/14/2025 1:47 PM [facility] Comment:Calculation based on the Chronic Kidney Disease Epidemiology Collaboration (CKD-EPI) equation refit without adjustment for race. BUN/Creatinine Ratio 21.0 LAB CHEMISTRY METHOD 01/14/2025 1:47 PM [facility] Calcium 9.0 8.5 - 10.5 mg/dL LAB CHEMISTRY METHOD 01/14/2025 1:47 PM [facility] AST (SGOT) 24 10 - 42 unit/L LAB CHEMISTRY METHOD 01/14/2025 1:47 PM [facility] ALT (SGPT) 23 10 - 60 unit/L LAB CHEMISTRY METHOD 01/14/2025 1:47 PM [facility] Alkaline Phosphatase 48 42 - 121 unit/L LAB CHEMISTRY METHOD 01/14/2025 1:47 PM [facility] Total Protein 6.8 6.0 - 8.0 g/dL LAB CHEMISTRY METHOD 01/14/2025 1:47 PM [facility] Albumin 4.3 3.2 - 5.0 g/dL LAB CHEMISTRY METHOD 01/14/2025 1:47 PM [facility] Total Bilirubin 0.7 0.0 - 1.4 mg/dL LAB CHEMISTRY METHOD 01/14/2025 1:47 PM EDT [facility] Blood Venous blood specimen / Unknown Venipuncture / Unknown 01/14/2025 8:45 AM EDT 01/14/2025 8:45 AM EDT us Yaya JACOB LAB BLOOD ORDERABLES Fi nal Result [facility]) [facility] [address] [place] [address], * COLONOSCOPY Anesthesia - MAC; [facility] ENDOSCOPY (01/13/2025 9:42 AM EDT) Anatomical Region Laterality Modality Endoscopy 01/13/2025 9:28 AM EDT Impressions 01/13/2025 9:43 AM EDT - The entire examined colon is normal on direct and retroflexion views. - No specimens collected. Recommendation: - Discharge patient to home. - Repeat colonoscopy in 10 years for screening purposes. Narrative 01/13/2025 9:43 AM EDT [facility] GI Patient Name: Jazmin Jack Procedure Date: 01/13/2025 9:28 AM Date of : 1965 Age: 60 Gender: Female Note Status: Finalized Attending MD: Yandel Bernstein MD, Procedure Date No Time: 01/13/2025 Procedure: Colonoscopy Indications: Screening for colorectal malignant neoplasm Providers: Yandel Bernstein MD Referring MD: Yandel Bernstein MD Medicines: Monitored Anesthesia Care Complications: No immediate complications. Estimated blood loss: None. Estimated Blood Loss: Estimated blood loss: none. Procedure: Pre-Anesthesia Assessment: - Prior to the procedure, a History and Physical was performed, and patient medications and allergies were reviewed. The patient is competent. The risks and benefits of the procedure and the sedation options and risks were discussed with the patient. All questions were answered and informed consent was obtained. Patient identification and proposed procedure were verified by the physician, the nurse, the support team assoc and the tattoo technician in the pre-procedure area in the endoscopy suite. Mental Status Examination: alert and oriented. Airway Examination: normal oropharyngeal airway and neck mobility. Respiratory Examination: clear to auscultation. CV Examination: normal. Prophylactic Antibiotics: The patient does not require prophylactic antibiotics. Prior Anticoagulants: The patient has taken no anticoagulant or antiplatelet agents. ASA Grade Assessment: II - A patient with mild systemic disease. After reviewing the risks and benefits, the patient was deemed in satisfactory condition to undergo the procedure. The anesthesia plan was to use monitored anesthesia care (MAC). Immediately prior to administration of medications, the patient was re-assessed for adequacy to receive sedatives. The heart rate, respiratory rate, oxygen saturations, blood pressure, adequacy of pulmonary ventilation, and response to care were monitored throughout the procedure. The physical status of the patient was re-assessed after the procedure. After I obtained informed consent, the scope was passed under direct vision. Throughout the procedure, the patient's blood pressure, pulse, and oxygen saturations were monitored continuously. The Olympus Colonoscope was introduced through the anus and advanced to the cecum, identified by appendiceal orifice and ileocecal valve. The colonoscopy was performed without difficulty. The patient tolerated the procedure well. The quality of the bowel preparation was good. Findings: The perianal and digital rectal examinations were normal. The entire examined colon appeared normal on direct and retroflexion views. Procedure Code(s): --- Professional --- G0121, Colorectal cancer screening; colonoscopy on individual not meeting criteria for high risk Diagnosis Code(s): --- Professional --- Z12.11, Encounter for screening for malignant neoplasm of colon CPT copyright 2020 [employer]. All rights reserved. The codes documented in this report are preliminary and upon set up / operator review may be revised to meet current compliance requirements. Yandel Bernstein MD 01/13/2025 9:43:03 AM This report has been signed electronically.Yandel Bernstein MD Number of Addenda: 0 Note Initiated On: 01/13/2025 9:28 AM Scope Withdrawal Time: 0 hours 6 minutes 5 seconds Scope In: 9:33:10 AM Scope Out: 9:43:33 AM Endoscopy Department at [facility] - [address] [place] [phone] Procedure Note Yandel Bernstein MD - 01/13/2025 [facility] GI Patient Name: Jazmin aJck Procedure Date: 01/13/2025 9:28 AM Date of : 1965 Age: 60 Gender: Female Note Status: Finalized Attending MD: Yandel Bernstein MD, Procedure Date No Time: 01/13/2025 Procedure: Colonoscopy Indications: Screening for colorectal malignant neoplasm Providers: Yandel Bernstein MD Referring MD: Yandel Bernstein MD Medicines: Monitored Anesthesia Care Complications: No immediate complications. Estimated blood loss:None. Estimated Blood Loss: Estimated blood loss: none. Procedure: Pre-Anesthesia Assessment: - Prior to the procedure, a History and Physicalwas performed, and patient medications and allergieswere reviewed. The patient is competent. The risks and benefits of the procedure and the sedation optionsand risks were discussed with the patient. Allquestions were answered and informed consent was obtained. Patient identification and proposed procedure were verified by the physician, the nurse, theanesthetist and the tattoo technician in the pre-procedure area in the endoscopy suite. Mental Status Examination: alertand oriented. Airway Examination: normal oropharyngeal airway and neck mobility. Respiratory Examination: clear to auscultation. CV Examination: normal. Prophylactic Antibiotics: The patient does notrequire prophylactic antibiotics. Prior Anticoagulants: The patient has taken no anticoagulant or antiplatelet agents. ASA Grade Assessment: II - A patient withmild systemic disease. After reviewing the risks and benefits, the patient was deemed in satisfactory condition to undergo the procedure. The anesthesia plan was to use monitored anesthesia care (MAC). Immediately prior to administration of medications, the patient was re-assessed for adequacy to receive sedatives. The heart rate, respiratory rate, oxygen saturations, blood pressure, adequacy of pulmonary ventilation, and response to care were monitored throughout the procedure. The physical status ofthe patient was re-assessed after the procedure. After I obtained informed consent, the scope was passed under direct vision. Throughout theprocedure, the patient's blood pressure, pulse, and oxygen saturations were monitored continuously. TheOlympus Colonoscope was introduced through the anus and advanced to the cecum, identified by appendiceal orifice and ileocecal valve. The colonoscopy was performed without difficulty. The patient tolerated the procedure well. The quality of the bowel preparation was good. Findings: The perianal and digital rectal examinations were normal. The entire examined colon appeared normal on direct and retroflexion views. Procedure Code(s): --- Professional --- G0121, Colorectal cancer screening; colonoscopy on individual not meeting criteria for high risk Diagnosis Code(s): --- Professional --- Z12.11, Encounter for screening for malignantneoplasm of colon CPT copyright 2020 [employer]. All rights reserved. The codes documented in this report are preliminary and upon set up / operator reviewmay be revised to meet current compliance requirements. Yandel Bernstein MD 01/13/2025 9:43:03 AM This report has been signed electronically.Yandel Bernstein MD Number of Addenda: 0 Note Initiated On: 01/13/2025 9:28 AM Scope Withdrawal Time: 0 hours 6 minutes 5 seconds Scope In: 9:33:10 AM Scope Out: 9:43:33 AM Endoscopy Department at [facility] - [address] [place] [phone] IMPRESSION: - The entire examined colon is normal on direct and retroflexion views. - No specimens collected. Recommendation: - Discharge patient to home. - Repeat colonoscopy in 10 years for screening purposes. us Yandel Bernstein MD GI~PROCEDURE ORDERABLES Fin al Result * KATIA SCREENING DIGITAL (02/17/2024 1:36 PM EDT) Anatomical Region Laterality Modality Mammography 02/17/2024 7:43 AM EDT Narrative 02/17/2024 1:36 PM EDT [facility] Diagnostic Imaging Department [address] [place] [address] [id number] Patient: JAZMIN JACK D.O.B./Age/Sex: 1965 - 59 - F Unit#: [id number] [facility] CLI Mnemonic/Ordering Site: [facility] Ordering Physician: PATSY LEON MD [facility] Screening Digital - 02/17/24 - Report Status:Signed EXAM: [facility] Screening Digital EXAM DATE AND TIME: 02/17/2024 8:54 AM HISTORY: Screening. 30 pound weight loss. COMPARISON: 02/12/23, 02/08/22, 08/03/21, 01/25/21, 01/20/20 TECHNIQUE: Bilateral digital breast tomosynthesis was performed in the CC and MLO projections. Computer aided detection with [employer] 3D 3.1 was employed. TISSUE DENSITY: b. [...] Mammogram performed at [facility] [address] [place] [address] Dictating Physician: DESTINY HERNANDES MD Electronically Signed by: DESTINY HERNANDES MD Dic Date/Time: 02/17/24 1332 Sign date/Time: 02/17/24 1336 Procedure Note Destiny Hernandes MD - 03/17/2024 [facility] Diagnostic Imaging Department [address] [place] [id number] Patient: JAZMIN JACK /Age/Sex: 1965 - 59 - F Unit#: [id number] Location/Status: [facility] CLI Mnemonic[facility]ing [facility] Ordering Physician: PATSY LEON MD [facility] Screening Digital - 02/17/24 - Report Status:Signed EXAM: [facility] Screening Digital EXAM DATE AND TIME: 02/17/2024 8:54 AM HISTORY: Screening. 30 pound weight loss. COMPARISON: 02/12/23, 02/08/22, 08/03/21, 01/25/21, 01/20/20 TECHNIQUE: Bilateral digital breast tomosynthesis was performed in the CCand MLO projections. Computer aided detection with [facility] [employer] AI 3D 3.1was employed. TISSUE DENSITY: b. [...] Mammogram performed at [facility] at [address] [address] Dictating Physician: DESTINY HERNANDES MD Electronically Signed by: DESTINY HERNANDES MD Dic Date/Time: 02/17/24 1332 Sign date/Time: 02/17/24 1336 Patsy Leon MD IMG BI PROCEDURES Final Result from Last 3 Months or Most Recently Relevant to Health Maintenance Insurance [place] [address] Care Teams Keno Writer/Runner Relationship Specialty Start Date End Date Arti Griffiths DO [address] [place] [address] PCP - General 03/09/24
--- NOTE | 2025-02-04 09:39 | MHC.AU.HA3 ---
Hearing Instrument Follow-Up- Binaural Date of Visit: 02/04/25 Right Ear: Reji, Model, Color, Serial Number: Seven [id number] R, harley layton S#[id number] Nail Tech Repair Warranty: 01/13/2027 Nail Tech Loss and Damage Warranty: 01/13/2027 [facility] Service Plan: 12/31/24 Battery Size: Rechargeable Inspector Mechanical/Slim Tube: 1 M Earmold/Dome/CShell/SlimTip:canal lock slimtip S#[id number] Warranty 04/13/2024 Type of Wax Guard: cerustop Dispensed By: [facility] Date of Fittin01/01/24 Left Ear: Reji, Model, Color, Serial Number: Seven [id number] R, harley layton [id number] Nail Tech Repair Warranty: 01/13/2027 Nail Tech Loss and Damage Warranty: 01/13/2027 [facility] Service Plan: 12/31/24 Battery Size: Rechargeable Inspector Mechanical/Slim Tube: 1 M Earmold/Dome/CShell/SlimTip: canal lock slimtip [id number] Warranty 04/13/2024 Type of Wax Guard: cerustop Dispensed By: [facility] Date of Fittin01/01/24 Follow-Up Summary: Left BYNUM d/o, c/o . Cleaned aid, replaced wax guard on slim tip and on manager technical support, still no amplification. Replaced manager technical support, listening check positive. Recommendations: Recommendations: Hearing instrument maintenance in 6 months, or sooner if needed. Diagnosis Code(s): Primary Diagnosis: H90.3 Bilateral Sensorineural Hearing Loss Signature: Provider: Angelica Cameron, CCC-A
== END 2025-02-04 08:01 | disposition home or self-care (01) ==
LOC: HO.HAP 08:00
PROVIDERS: Visit Provider Family Medicine
DX: Z13.89 Encounter for screening for other disorder (principal)

== ENCOUNTER 2025-02-04 13:10 | Outpatient (REF) | payer SELFPAY | END 2025-02-04 13:11 | disposition home or self-care (01) | LOC: HO.HAP 13:10 | PROVIDERS: Visit Provider Family Medicine | DX: Z46.1 Encounter for fitting and adjustment of hearing aid (principal); H90.3 Sensorineural hearing loss, bilateral | CPT/HCPCS: 92593 ==

== ENCOUNTER 2025-05-05 08:21 | Outpatient (REF) | payer SELFPAY ==
--- OUTSIDE RECORDS SUMMARY | 2025-05-05 08:53 | XMS_ITS | Encounter Summary ---
Author Organization [facility] Address [address] [place] [address] Care Team Providers Care Tankage Supervisor Name Role Phone Arti Griffiths Primary Care Provider [phone] Reason for Referral * Consultation (Emergency) - Authorized Specialty Diagnoses / Procedures Referred By Contact Referred To Contact Oncology / Hematology and Oncology Diagnoses Infiltrating ductal carcinoma of left breast (CMS/HCC V24, [facility]/HCC V28) Yaya Carcamo PA [address] [place] [address] Phone: tel: fax: Chuy Rabago MD [address] [place] [address] Phone: tel: fax: Referral ID Status Reason Start Date Expiration Date Visits Requested Visits Authorized [id number] Authorized Specialty Services Required 03/28/2026 1 1 * Consultation (Emergency) - Closed Specialty Diagnoses / Procedures Referred By Contac t Referred To Contact Breast Surgery Diagnoses Infiltrating ductal carcinoma of left breast (CMS/HCC V24, CMS/HCC V28) Yaya Carcamo PA [address] [place] [address] Phone: tel: fax: Breast Care [facility] [address] [place] [address] Phone: tel: fax: Referral ID Status Reason Start Date Expiration Date V isits Requested Visits Authorized [id number] Closed Specialty Services Required 03/28/2025 03/28/2026 1 1 Encounter Details Date Type Department Care Team (Late st Contact Info) Description 03/28/2025 Results [facility] [address] [place] [phone] Yaya Carcamo PA [address] [place] [address] Social History Tobacco Use Types Packs/Day Years [...] care for your loved ones. For example, director maternal child or elderly care for an older adult? [...] Date Recorded What is your living situation? Unrecognized valu e 07/07/2024 Interpersonal Safety Answer Date Record ed Physical Abuse Unrecognized value 01/13/2025 Verbal Abuse Unrecognized value 01/13/2025 Comments No Sex and Gender Information Value Date Recorded Sex Assigned at Female 01/13/2025 7:50 AM EDT Legal Sex Female 11:33 PM EST Gender Identity Female 01/13/2025 7:50 AM EDT Sexual Orientation Straight 01/13/2025 7: 50 AM EDT documented as of this encounter Plan of Treatment Upcoming Encounters Date Type Department Care Team (Late st Contact Info) Description 05/11/2025 9:45 AM EST Office Visit Breast Care [address] [phone] Marciano Randall MD [address] [place] [phone] 05/11/2025 1:00 PM EST Office Visit [facility] Hematology Oncology [address] [place] [phone] Chuy Rabago MD [address] [place] [address] 07/19/2025 8:30 AM EST Office Visit Internal Medicine - [facility] [address] [place] [address] Yaya Carcamo PA [address] [place] [address] Scheduled Referrals Name Type Priority Associated Diagnoses Order Schedule Ambulatory referral to Breast Surgery Outpatient Referral Routine Infiltrating ductal carcinoma of left breast ([facility]/HCC V24, [facility]/HCC V28) 1 Occurrences starting 03/28/2025 until 03/28/2026 Ambulatory referral to Hematology / Oncology Outpatient Referral Routine Infiltrating ductal carcinoma of left breast ([facility]/HCC V24, CMS/HCC V28) 1 Occurrences starting 03/28/2025 until 03/28/2026 documented as of this encounter Visit Diagnoses Diagnosis Infiltrating ductal carcinoma of left breast (CMS/HCC V24, CMS/[facility] V28)- Primary documented in this encounter Additional Health Concerns Assessment Noted Time PHQ-9 Depression Total Score: 0 07/07/19 25 12:44 PM EST documented as of this encounter Care Teams Tankage Supervisor Relationship Specialty Start Date End Date Arti Griffiths DO [address] [place] [address] PCP - General 03/09/24 documented as of this encounter
--- OUTSIDE RECORDS SUMMARY | 2025-05-05 08:54 | XMS_ITS | Encounter Summary ---
Author Organization [facility] Address [address] [place] [address] Care Team Providers Care Marine Equipment Test Engineer Name Role Phone Arti Griffiths Primary Care Provider Encounter Details Date Type Department Care Team (Late st Contact Info) Description 03/17/2025 Results Follow-Up Internal Medicine - [facility] [address] [place] [address] Najma Wolf [place] Social History Tobacco Use Types Packs/Day Years [...] care for your loved ones. For example, children's tutor nursery or elderly care for an older adult? [...] 9:45 AM EST Office Visit Breast Care [address] [phone] Marciano Randall MD [address] [place] [phone] 05/11/2025 1:00 PM EST Office Visit [facility] Hematology Oncology [address] [place] [phone] Chuy Rabago MD [address] [place] [phone] 07/19/2025 8:30 AM EST Office Visit Internal Medicine - [facility] [address] [place] [address] Yaya Carcamo PA [address] [place] [address] documented as of this encounter Visit Diagnoses Not on filedocumented in this encounter Additional Health Concerns Assessment Noted Time PHQ-9 Depression Total Score: 0 07/07/19 25 12:44 PM EST documented as of this encounter Care Teams Marine Equipment Test Engineer Relationship Specialty Start Date End Date Arti Griffiths DO [address] [place] [address] PCP - General 03/09/24 documented as of this encounter
--- OUTSIDE RECORDS SUMMARY | 2025-05-05 08:54 | XMS_ITS | Encounter Summary ---
Author Organization [facility] Address [address] [place] [address] Care Team Providers Care Horticulturalist Name Role Phone Arti Griffiths DO Primary Care Provider [phone] Reason for Visit * Reason Onset Date Comments Work Note 05/02/2025 Encounter Details Date Type Department Care Team ([facility] st Contact Info) Description 05/02/2025 Telephone General Surgery [facility] [address] [place] [address] Marciano Randall MD [address] [place] [phone] Social History Tobacco Use Types Packs/Day Years Used Date Smoking Tobacco: Never Smokeless Tobacco: Never Alcohol Use Standard Drinks/Week Comments Yes 0 (1 standard drink = 0.6 oz pur e alcohol) SOCIAL Housing Instability Answer Date Recorde d Are [...] care for your loved ones. For example, school child care attendant or elderly care for an older adult? [...] Date Record ed Physical Abuse Unrecognized value 04/26/2025 Verbal Abuse Unrecognized value 04/26/2025 Comments No Sex and Gender Information Value Date Recorded Sex Assigned at Female 01/13/2025 7:50 AM EDT Legal Sex Female 11:33 PM EST Gender Identity Female 01/13/2025 7:50 AM EDT Sexual Orientation Straight 01/13/2025 7: 50 AM EDT documented as of this encounter Progress Notes * Dee Varghese - 05/02/2025 11:32 AM EST She has surgery with you on 04/26/25. She is interested in going back to work tomorrow? Can I complete a note for her? documented in this encounter Plan of Treatment Upcoming Encounters Date Type Department Care Team (Late st Contact Info) Description 05/11/2025 9:45 AM EST Office Visit Breast Care Center [facility] [address] [place] [phone] Marciano Randall MD [address] [place] [phone] 05/11/2025 1:00 PM EST Office Visit [facility] Hematology Oncology [address] [place] [phone] Chuy Rabago MD [address] [place] [phone] 07/19/2025 8:30 AM EST Office Visit Internal Medicine - [facility] [address] [place] [address] Yaya Carcamo PA [address] [place] [address] documented as of this encounter Visit Diagnoses Not on filedocumented in this encounter Additional Health Concerns Assessment Noted Time PHQ-9 Depression Total Score: 0 07/07/19 12:44 PM EST documented as of this encounter Care Teams Horticulturalist Relationship Specialty Start Date End Date Liset GriffithsmanDO myriam [address] [place] [address] PCP - General 03/09/24 documented as of this encounter
--- OUTSIDE RECORDS SUMMARY | 2025-05-05 08:54 | XMS_ITS | Encounter Summary ---
Author Organization [facility] Address [address] [place] [address] Care Team Providers Care Mold Design Engineer Name Role Phone Arti Griffiths DO Primary Care Provider [phone] Encounter Details Date Type Department Care Team (Latest Contact Info) Description 04/07/2025 Lab Requisition [facility] [address] [facility] [place] [phone] Jayro Leon MD [address] [phone] Encounter for gynecological examination (general) (routine) without abnormal findings Social History Tobacco Use Types Packs/Day Years [...] Record ed Within the last 3 months, satish braun many times did you visit the emergency [...] care for your loved ones. For example, teacher early childhood development or elderly care for an older adult? [...] 9:45 AM EST Office Visit Breast Care [address] [place] [phone] Marciano Randall MD [address] [place] [phone] 05/11/2025 1:00 PM EST Office Visit [facility] Hematology Oncology [address] [place] [phone] Chuy Rabago MD [address] [place] [phone] 07/19/2025 8:30 AM EST Office Visit Internal Medicine - [facility] [address] [place], [place] [phone] Yaya Carcamo PA [address] [place] [address] documented as of this encounter Procedures Procedure Name Priority Date/Time Associated Diagnosis Comments PAP SMEAR Routine 04/06/2025 12:00 AM EST Encounter for gynecological examination (general) (routine) without abnormal findings documented in this encounter Results * Pap smear (04/06/2025 12:00 AM EST) Interpretation Negative for intraepithelial lesion or malignancy 04/11/2025 9:54 AM [facility] at 0954 EST General Categorization Negative 04/11/2025 9:54 AM [facility] Other Findings Shift in catracho suggestive of bacterial vaginosis 04/11/2025 9:54 AM [facility] Specimen Adequacy Satisfactory for evaluation 04/11/2025 9:54 AM [facility] Pap Methodology Liquid Based Pap Test 04/11/2025 9:54 AM [facility] Disclaimer The Pap test is a screening test which carries an inherent false negative rate. These test results should be correlated with the patient's clinical findings and history. This Pap test was processed using an automated screening system. Technical cytopathology services provided by [facility], at [address] [place] [address] (CLIA # [id number]/Ronnell Santos MD, Cotton [employer]verter.) 04/11/2025 9:54 AM EST [facility] Console Pap Interpretation Reported 04/11/2025 9:54 AM EST [facility] Brushing/Spatula Vaginal structure / Unknown 04/06/2025 04/07/2025 6:36 AM EST us Jayro Leon MD LAB CYTOLOGY ORDERABLES Final Result [facility] [address] [place] [address], documented in this encounter Visit Diagnoses Diagnosis Encounter for gynecological examination (general) (routine) without abnormal findings documented in this encounter Additional Health Concerns Assessment Noted Time PHQ-9 Depression Total Score: 0 07/07/19 25 12:44 PM EST documented as of this encounter Care Teams Mold Design Engineer Relationship Specialty Start Date End Date Arti Griffiths DO [address] [place] [address] PCP - General 03/09/24 documented as of this encounter
--- OUTSIDE RECORDS SUMMARY | 2025-05-05 08:54 | XMS_ITS | Clinical Summary ---
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 Active oxyCODONE (OXY-IR) 5 mg immediate release capsuleIndication s:Infiltrating ductal carcinoma of left breast (CMS/HCC V24, CMS/HCC V28) Take 1 capsule (5 mg total) by mouth every 6 (six) hours if needed for severe pain for up to 5 doses. Max Daily Amount: 20 mg 5 capsule 04/26/20 25 Active polyethylene glycol (Golytely) 236-22.74-6.74 -5.86 gram solution Take 4L by mouth once for one dose. May substitue any PEG. Starting at 2PM the day before your procedure drink 1 8oz glasses at your own pace until you complete half of the gallon. Finish 2nd half of the gallon at 8PM. 4000 mL 12/31/19 25 025 Discontinu ed(Therapy completed) bisacodyL (DULCOLAX) 5 mg EC tablet Take 2 tablets by mouth right before beginning bowel prep. See instructions provided by the office 2 tablet 12/31/19 Discontinu ed(Therapy completed) PEG 3350 (GLYCOLAX/MIRALAX ) 4 gram packet Take by mouth. 04/06 Discontinu ed(Therapy completed) acetaminophen (TYLENOL) 500 mg tablet Take 1 tablet (500 mg total) by mouth 3 (three) times a day for 5 days. 15 tablet 04/26/20 25 docusate sodium (COLACE) 100 mg capsule Take 1 capsule (100 mg total) by mouth 2 (two) times a day for 7 days. 14 each 04/26/20 Active Problems Problem Noted Date Diagnosed Date Invasive ductal carcinoma of breast (CMS/HCC V24, CMS/HCC V28) 03/28/2025 Overview (03/28/2025): Left breast Hyperlipidemia 06/15/2021 Hypothyroidism 08/24/2020 Encounters Date Type Department Care Team Description 05/02/2025 Telephone General Surgery [address] [phone] Marciano Randall MD 04/26/2025 11:44 AM EST Anesthesia Event [address] [phone] Carlos Tadeo MD Chang, Daniel J, MD 04/26/2025 10:30 AM EST - 04/26/2025 12:30 PM EST Surgery [address] [phone] Marciano Randall MD LEFT BREAST PARTIAL MASTECTOMY W/ MAGSEED LOCALIZATION [79279 (CPT ) +1 more] 04/26/2025 8:00 AM EST - 04/26/2025 11:59 PM EST Hospital Encounter [facility] Nuclear Medicine [address] [place] [phone] Malignant neoplasm of unspecified site of left female breast (CMS/HCC V24, CMS/HCC V28) Discharge Disposition: Home or Self Care 04/26/2025 6:41 AM EST - 04/26/2025 3:55 PM EST Hospital Encounter [facility] Main OR [address] [place] [address] Marciano Randall MD Infiltrating ductal carcinoma of left breast ([facility]/HCC V24, [facility] V28) Discharge Disposition: Home or Self Care 04/26/2025 6:27 AM EST - 04/26/2025 11:59 PM EST Hospital Encounter [facility] at [address] [phone] Malignant neoplasm of unspecified site of left female breast (CMS/HCC V24, CMS/HCC V28) Discharge Disposition: Home or Self Care 04/25/2025 9:00 AM EST - 04/25/2025 11:59 PM EST Hospital Encounter [facility] at [address] [phone] Malignant neoplasm of unspecified site of left female breast (CMS/HCC V24, CMS/HCC V28) Discharge Disposition: Home or Self Care 04/25/2025 8:14 AM EST - 04/25/2025 11:59 PM EST Hospital Encounter [facility] Ultrasound [address] [place] [phone] Malignant neoplasm of unspecified site of left female breast (CMS/HCC V24, [facility]/HCC V28) Discharge Disposition: Home or Self Care 04/13/2025 Telephone General Surgery [facility] [address] [phone] Marciano Randall MD 04/12/2025 Telephone General Surgery [facility] [address] [phone] Marciano Randall MD 04/07/2025 Lab Requisition [facility] Lab [address] [facility] [place] [phone] Jayro Leon MD Encounter for gynecological examination (general) (routine) without abnormal findings 03/30/2025 10:45 AM EDT Consult [address] [phone] Marciano Randall MD Infiltrating ductal carcinoma of left breast (CMS/HCC V24, CMS/HCC V28) (Primary Dx); Family history of breast cancer 03/29/[address] [phone] Alisa Yeh, TAM 03/28/2025 Results [facility] [address] [place], [place] [phone] Yaya Carcamo PA 03/23/2025 7:42 AM EDT - 03/23/2025 11:59 PM EDT Hospital Encounter [facility] at [address] [phone] Breast mass Discharge Disposition: Home or Self Care 03/23/2025 6:44 AM EDT - 03/23/2025 11:59 PM EDT Hospital Encounter [facility] Ultrasound [address] [place] [phone] Breast mass Discharge Disposition: Home or Self Care 03/17/2025 1:13 PM EDT - 03/17/2025 11:59 PM EDT Hospital Encounter [facility] Ultrasound [address] [place] [address] Abnormal mammogram of left breast Discharge Disposition: Home or Self Care 03/17/2025 12:23 PM EDT - 03/17/2025 11:59 PM EDT Hospital Encounter [facility] at [address] [phone] Abnormal mammogram of left breast Discharge Disposition: Home or Self Care 03/17/2025 Results Follow-Up Internal Medicine - [facility] [address] [place], [place] [phone] Najma Wolf [place] 03/15/2025 8:00 AM EDT Treatment [address] [phone] Juliana Montero, PT Neck stiffness (Primary Dx) 03/08/2025 8:30 AM EDT Treatment [facility] [address] [phone] Yaya Broussard, RECRUITING TEAM LEAD Neck stiffness (Primary Dx) 03/01/2025 8:00 AM EDT Treatment [address] [phone] Juliana Montero, PT Neck stiffness (Primary Dx) 02/24/2025 6:47 AM EDT - 02/24/2025 11:59 PM EDT Hospital Encounter [facility] [address] [place] [address] Encounter for screening mammogram for malignant neoplasm of breast Discharge Disposition: Home or Self Care 02/21/2025 12:30 PM EDT Treatment [address] [phone] Yaya Broussard, ATIYA Neck stiffness (Primary Dx) 02/15/2025 7:30 AM EDT Evaluation [address] [phone] Juliana Montero, PT Neck stiffness (Primary Dx) from Last 3 Months Immunizations Immunization Administration Dates Next Due Influenza Quadravalent, MDCK [...] HISTORICAL TUBAL LIGATION OTHER SURGICAL HISTORY PROCEDURE: WV LIGJ DIVJ & STRIPPING SHORT SAPHENOUS VEIN CERVICAL BIOPSY W/ LOOP ELECTRODE EXCISION PROCEDURE: WV CONIZATION CERVIX W/WO D&C RPR ELTRD EXC; [...] cervix; COMMENT: S/p colposcopy with leep Seizures (CMS/[facility] V24, CMS/[facility] V28) as a child Arthritis Hyperlipidemia Family History Medical History Relation Name Comments [...] for your loved ones. For example, children's book author or elderly care for an older adult? [...] 01/13/2025 7: 50 AM EDT Obstetrics History Para Term AB IAB SAB Ectopic Multiple Livin g Live Births 2 Last Filed Vital Signs Vital Sign Reading Time Taken Comments Blood Pressure 124/81 04/26/2025 2:52 PM EST Pulse 85 04/26/2025 2:52 PM EST Temperature 36.8 C (98.2 F) 04/26/2025 2:52 PM EST Respiratory Rate 18 04/26/2025 2:52 PM EST Oxygen Saturation 97% 04/26/2025 2:52 PM EST Inhaled Oxygen Concentration - - Weight 63.5 kg (140 lb) 04/26/2025 7:51 AM EST Height 162.6 cm (5' 4 ) 04/26/2025 7:51 AM EST Body Mass Index 24.03 04/26/2025 7:51 AM EST Plan of Treatment Upcoming Encounters Date Type Department Care Team (Late st Contact Info) Description 05/11/2025 9:45 AM EST Office Visit Breast Care [address] [phone] Marciano Randall MD [address] [place] [phone] 05/11/2025 1:00 PM EST Office Visit [facility] Hematology Oncology [address] [place] [phone] Chuy Rabago MD [address] [place] [phone] 07/19/2025 8:30 AM EST Office Visit Internal Medicine - [address] [phone] Yaya Carcamo PA [address] [place] [address] Health Maintenance Due Date Last Done Comments Social Influencers of Health Screening 07/07/2025 07/07/2024 COVID-19 Vaccine (9 - Moderna risk season) 2025 03/11/2025, 03/12/2024, 03/10/2023, Additional history exists Breast Cancer Screening 03/17/2027 03/17/20, 02/24/2025, 02/17/2024, Additional history exists Cervical Cancer Screening: Pap Smear 04/06/2028 04/06/2025 Cholesterol Screening (Lipid Panel) 01/14/2030 01/14/2025, 03/12/2024, 01/26/2024 DTaP,Tdap,and Td Vaccines (3 - Td or Tdap) 06/18/2031 06/18/2021, 05/03/2011 Colorectal Cancer Screening: Colonoscopy 01/13/2035 01/13/2025 RSV Immunization Adult Patients (1 - 1-dose 75+ series) 01/06/2040 Zoster Vaccines Completed 08/31/2021, 07/31, 06/11/2021 Pneumococcal Vaccine: 50+ Years Completed 07/02/2024 Depression Screening Completed 07/07/2024 Influenza Vaccine Completed 03/11/2025, , 03/10/2023, Additional history exists HIB Vaccines Aged Out No longer eligi [...] on patient's age to complete this topic Medical Devices Implanted Type 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 Device Identifier Shelf Expiration Date Model / Serial / Lot Hemostat Flour Collgn 1gm [facility] - [id number] Implanted:Qty: 1 on 04/26/2025 by Marciano Randall MD at [facility] Hemostasis Left: Breast CR BARD - DAVOL DIV [id number] 09/28/2027 [id number] / NA / [id number] Marker Breast Biopsy 15g Rigid Ti Open Coil Hydromark - [id number] - [id number] Implanted:Qty: 1 on 03/23/2025 by Tom Yanes MD at [facility] Imaging Implants Left: Breast [employer] [id number] 09/08/2027 [id number] 5-T3 / [id number] / [id number] D Marker 18ga Magseed 7cm - [id number] - [id number] Implanted:Qty: 1 on 04/25/2025 by Tom Yanes MD at [facility] Imaging Implants Left: Breast [employer] 07/02/2026 [id number] / [id number] / Procedures Procedure Name Priority Date/Time Associated Diagnosis Comments MG MAMMO BREAST SPECIMEN (STATISTICS) Routine 04/26/2025 2:36 PM EST Malignant neoplasm of unspecified site of left female breast (CMS/HCC V24, CMS/HCC V28) OXYGEN THERAPY, ADULT Routine 04/26/2025 1:50 PM EST OXYGEN THERAPY, ADULT Routine 04/26/2025 1:50 PM EST TISSUE EXAM Routine 04/26/2025 12:35 PM EST Infiltrating ductal carcinoma of left breast (CMS/HCC V24, CMS/HCC V28) TH AN LMA(NO CHARGE) Routine 04/26/2025 12:21 PM EST WV BIOPSY/EXCISION LYMPH NODE(S) OPEN SUPERFICIAL 04/26/2025 11:43 AM EST Infiltrating ductal carcinoma of left breast (CMS/HCC V24, CMS/HCC V28) Case Notes MAGSEED 04/25 @ 9:00, SENTINEL NODE 04/26 @ 8:00 Special Needs Left Breast Partial Mastectomy with Magseed localization, sentinal lymph node biopsy 90 min WV PLACEMENT LOC DEVICE BREAST PERC MAMMO GUIDANCE 1ST LESION 04/26/2025 11:43 AM EST Infiltrating ductal carcinoma of left breast (CMS/HCC V24, CMS/HCC V28) Case Notes MAGSEED 04/25 @ 9:00, SENTINEL NODE 04/26 @ 8:00 Special Needs Left Breast Partial Mastectomy with Magseed localization, sentinal lymph node biopsy 90 min WV MASTECTOMY PARTIAL 04/26/2025 11:43 AM EST Infiltrating ductal carcinoma of left breast (CMS/HCC V24, CMS/HCC V28) Case Notes MAGSEED 04/25 @ 9:00, SENTINEL NODE 04/26 @ 8:00 Special Needs Left Breast Partial Mastectomy with Magseed localization, sentinal lymph node biopsy 90 min NM LYMPHOSCINTIGRAM Routine 04/26/2025 9:16 AM EST Malignant neoplasm of unspecified site of left female breast (CMS/HCC V24, CMS/HCC V28) MG MAMMO DIGITAL DIAGNOSTIC CLIP POST US/MR GUIDE LEFT Routine 04/25/2025 10:02 AM EST Malignant neoplasm of unspecified site of left female breast (CMS/HCC V24, CMS/HCC V28) US PLCMNT BREAST LOC DEV 1ST MAGSEED LESION LEFT Routine 04/25/2025 9:09 AM EST Malignant neoplasm of unspecified site of left female breast (CMS/HCC V24, CMS/HCC V28) PROCEDURAL ECG Routine 04/12/2025 8:14 AM EST Breast cancer (CMS/HCC V24, CMS/HCC V28) EXTERNAL CLINICAL LAB 04/11/2025 PAP SMEAR Routine 04/06/2025 12:00 AM EST Encounter for gynecological examination (general) (routine) without abnormal findings MG MAMMO DIGITAL DIAGNOSTIC CLIP POST US/MR GUIDE LEFT Routine 03/23/2025 8:16 AM EDT Breast mass TISSUE EXAM Routine 03/23/2025 7:53 AM EDT Breast mass US BX BREAST PERC 1ST LESION LEFT Routine 03/23/2025 7:43 AM EDT Breast mass US BREAST LIMITED LEFT Routine 1:50 PM EDT Abnormal mammogram of left breast MG MAMMO DIGITAL DIAGNOSTIC W DERRELL LEFT Routine 03/17/2025 1:46 PM EDT Abnormal mammogram of left breast MG MAMMO DIGITAL SCREENING W DERRELL BILAT Routine 02/24/2025 7:10 AM EDT Encounter for screening mammogram for malignant neoplasm of breast LIPID PANEL WITH REFLEX TO DIRECT LDL Routine 01/14/2025 8:45 AM EDT Mixed hyperlipidemia COLONOSCOPY Routine 01/13/2025 9:42 AM EDT Colon cancer screening from Last 3 Months or Most Recently Relevant to Health Maintenance Results * MG Mammo Breast Specimen (Statistics) (04/26/2025 2:36 PM EST) Narrative RIS PACS/VR - 04/26/2025 2:36 PM EST This order has been auto-finalized and does not contain a result. Marciano Randall MD IMG BI PROCEDURES Final Result RIS PACS/VR * Tissue exam (04/26/2025 12:35 PM EST) Only the most recent of2 resultswithin the time period is included. Final Diagnosis A. Left breast, magnetic seed-localized partial mastectomy: Tubular carcinoma Margins uninvolved Biopsy site changes with open coil marker Fibroadenomatoid change, columnar cell change and hyperplasia, and cysts B. Left axillary sentinel lymph node biopsy: No tumor seen in one lymph node (0/1) 5 10:41 AM EST [facility] at 1041 EST Synoptic Checklist INVASIVE CARCINOMA OF THE BREAST: Resection INVASIVE CARCINOMA OF THE BREAST: RESECTION - All Specimens 8th Edition - Protocol posted: 11/19/2023 SPECIMEN Procedure: Excision (less than total mastectomy) Specimen Laterality: Left TUMOR Tumor Site: Clock position : 1 o'clock Tumor Site: Distance from nipple (Centimeters): 3 cm Histologic Type: Tubular carcinoma Histologic Grade (Ernesto Histologic Score): Glandular (Acinar) / Tubular Differentiation: Score 1 Nuclear Pleomorphism: Score 1 Mitotic Rate: Score 1 Overall Grade: Grade 1 (scores of 3, 4 or 5) Tumor Size: Greatest dimension of largest invasive focus (Millimeters): 6 mm Tumor Focality: Single focus of invasive carcinoma Ductal Carcinoma In Situ (DCIS): Not identified Lymphatic and / or Vascular Invasion: Not identified Microcalcifications: Present in invasive carcinoma Microcalcifications: Present in non-neoplastic tissue Treatment Effect in the Breast: No known presurgical therapy MARGINS Margin Status for Invasive Carcinoma: All margins negative for invasive carcinoma Distance from Invasive Carcinoma to Closest Margin: Greater than: 5 mm REGIONAL LYMPH NODES Regional Lymph Node Status: : All regional lymph nodes negative for tumor Total Number of Lymph Nodes Examined (sentinel and non-sentinel): 1 Number of [place] Nodes Examined: 1 pTNM CLASSIFICATION (AJCC 8th Edition) Reporting of pT, pN, and (when applicable) pM categories is based on information available to the pathologist at the time the report is issued. As per the AJCC (Chapter 1, 8th Ed.) it is the managing physician's responsibility to establish the final pathologic stage based upon all pertinent information, including but potentially not limited to this pathology report. pT Category: pT1b pN Category: pN0 N Suffix: (sn) Breast Biomarker Testing Performed on Previous Biopsy: Estrogen Receptor (ER) Status: Positive (greater than 10% of cells demonstrate nuclear positivity) Breast Biomarker Testing Performed on Previous Biopsy: Progesterone Receptor (PgR) Status: Positive Breast Biomarker Testing Performed on Previous Biopsy: HER2 (by immunohistochemistry) : Negative (Score 1+) Testing Performed on (ER, HER2), current specimen (WV) 10:[address] [facility] Gross Description A. Breast, Left, LEFT BREAST PARTIAL MASTECTOMY, GREEN ANTERIOR, BLUE INFERIOR, ORANGE LATERAL, YELLOW MEDIAL, BLACK POSTERIOR, RED SUPERIOR: Labeled left breast . Received in formalin on 04/26/2025 (in formalin at 12:42 PM), is a single, intact, 16 gram, 3.6 cm (medial to lateral) x 3.6 cm (anterior to posterior) x 2.7 cm (superior to inferior) excision which is received previously inked by the surgeon as follows: anterior-green, inferior-blue, lateral-orange, medial-yellow, posterior-black and superior-red. The specimen is serially sectioned sequentially from medial to lateral into eight slices. The cut surfaces show focally hemorrhagic fibroadipose tissue which contains a Mag seed in slice 6 and an adjacent 0.25 cm in greatest diameter gel elizabeth biopsy site containing an open coil clip (also in slice 6). The biopsy site is located 0.4 cm from the superior margin, 0.6 cm from the inferior margin and at least 1.0 cm from the remaining margins. There is fibrosis surrounding the biopsy site, however a definitive mass is not identified. The remaining tissue shows unremarkable fibroadipose tissue. The specimen is submitted in entirety in sixteen cassettes, per diagram. 1-2 medial margin, taken perpendicularly, two pieces each-slice 1 3-10 sequential sections, one piece each-slices 2-5 11-12 Magseed with biopsy site (12-Mag seed and open coil clip removed from this tissue), one piece each-slice 6 13-14 sequential section, one piece each-slice 7 15-16 lateral margin, taken perpendicularly, three and two pieces respectively-slice 8 Time put in formalin (cold ischemia ends): 12:42 PM 04/26/2025 Time tissue exits final stage of formalin on tissue processor: 9:00 PM 04/26/2025 Total fixation time (Ideally greater than 6 hours and less than 72 hours): Approximately 8.25 hours B. Lymph Node, LEFT AXILLARY SENTINEL LYMPH NODE: Labeled left axil lymph node . Received in formalin, with Telfa, is a 1.2 x 1.0 x 0.9 cm lymph node with minimal attached adipose tissue. The cut surfaces of the lymph node are soft, keller-red to yellow and focally blue-stained, with fatty infiltration. The specimen is submitted in entirety in two cassettes, three pieces each, x 2. TS 5 10:[address] [facility] Special Stains A. To exclude invasive carcinoma near a margin immunohistochemical staining was performed with appropriate controls. Calponin: Demonstrates maintained myoepithelial cell layer CK5: Exhibits mosaic staining pattern This argues against invasive carcinoma or atypia in this focus. Because the core biopsy showed the WV to be negative and this is highly unusual such a well-differentiated carcinoma, progesterone receptor was repeated on this specimen. Progesterone Receptor: Positive (5% Positive nuclei, average intensity: moderate) Internal controls stained appropriately All external controls stained appropriately FFPE Block: A10 Cold Ischemia and Fixation Times: Meets requirements specified in the latest version of the ASCO/CAP guidelines These tests have not been validated for use on decalcified tissue, non-formalin fixed tissue, or tissue fixed outside of the ASCO/CAP guidelines. ASCO/CAP criteria for evaluation: WV: Staining evaluation WV: Positive= >1% positive nuclei. Detection system: Polymer HRP, Leica Laboratory-developed tests In Vitro Diagnostic: WV clone 16 Leica 10:[address] [facility] Disclaimer NOTE: The immunohistochemical tests and in situ hybridization tests were developed and their performance characteristics were determined by [facility]. They have not been cleared or approved by the U.S. Food and Drug Administration. The FDA has determined that such clearance or approval is not necessary. These tests are used for clinical purposes. They should not be regarded as investigational or for research. This laboratory is certified under the Clinical Laboratory Improvement Amendments of 1988 (CLIA) as qualified to perform high complexity clinical laboratory testing. (controls appropriate) Unless otherwise specified, all tissue is 10% NB formalin fixed and paraffin embedded. 10:41 AM EST [facility] Tissue Left breast structure / Unknown 04/26/2025 12:35 PM EST 04/26/2025 12:54 PM EST Tissue specimen (specimen) Lymph node specimen / Unknown 04/26/2025 1:07 PM EST 04/26/2025 2:25 PM EST Marciano Randall MD LAB PATHOLOGY ORDERABLES Final Result [facility]) [facility] [address] [place] [address], * TH AN LMA(NO CHARGE) (04/26/2025 12:21 PM EST) Narrative Miriam Mercer CRNA - 04/26/2025 12:21 PM EST Miriam Mercer CRNA 04/26/2025 12:21 PM General Information and Staff Patient location during procedure: OR Performed by: Miriam Mercer CRNA Authorized by: Pancho Sheriff DO Intubation Airway not difficult Reason: elective Final Airway Details Ventilation between attempts: none LMA Size: 4 LMA Type: Classic LMA Seal Pressure: Final airway type: LMA Indications and Patient Condition Indications for airway management: anesthesia Sedation level: Yes Preoxygenated: yesSoft Tissue Damage: No Dentition Unchanged: Yes Patient position: sniffing MILS not maintained throughout Mask difficulty assessment: 0 - not attempted Start Time: 04/26/2025 11:48 AMStop Time: 04/26/2025 11:52 AM Pancho Sheriff DO ANESTHESIA ORDERABLES Final Result * NM Lymphoscintigram (04/26/2025 9:16 AM EST) Anatomical Region Laterality Modality Nuclear Medicine 04/26/2025 10:2 4 AM EST Impressions 04/26/2025 10:38 AM EST Intradermal injection of radioactivity for purposes of lymph node mapping. Imaging demonstrates activity in the upper outer breast. No evidence of immediate complication -------- FINAL REPORT -------- Dictated By: Tom Yanes Dictated Date: 04/26/2025 10:24 ET Assigned Physician: Tom Yanes Reviewed and Electronically Signed By: Tom Yanes Signed Date: 04/26/2025 10:38 ET Workstation ID: [id number] Transcribed By: Self Edit Transcribed Date: 04/26/2025 10:24 ET Narrative 04/26/2025 10:38 AM EST EXAM: Radionuclide scintigraphy for sentinel node identification prior to surgery. IMAGING: Scintigraphy after intradermal injection of radionuclide for sentinel lymph node mapping was performed. EXAM DATE AND TIME: 04/26/2025 8:35 AM HISTORY: Left breast cancer. Pre operative radionuclide sentinel lymph node localization requested. PROCEDURE: Informed consent was obtained. A procedure pause was performed including patient identification using 3 identifiers. Preprocedure imaging demonstrated: Known left breast cancer LATERALITY: LEFT Using sterile technique and following patient administered dermal application of topical anesthesia, intradermal injection of radionuclide was performed. A 25-gauge needle was used at each site. A skin wheal was visualized. Radionuclide administered: Tc 99m filtered sulfur colloid DOSE: 0.819 mCi TECHNIQUE: A small aliquot of material was introduced into the skin in the 12 o'clock, 3 o'clock, 6 o'clock and 9 o'clock positions at the areolar margin. Upon completion of the procedure, pressure was applied until adequate hemostasis was obtained. The patient was advised to perform self massage to facilitate localization of the lymph channels and nodes. The patient tolerated the procedure well and was discharged in good condition after being educated regarding post procedure care and instructions and contact information should she be concerned about a complication. Postprocedure imaging: Was performed Laterality: LEFT FINDINGS: Activity is demonstrated in the expected region of the areola. There is activity in the upper outer left breast region. Difficult to determine if this might represent the index malignancy area. No definite activity in the axilla at the time of imaging. Procedure Note Tom Yanes MD - 04/26/2025 EXAM: Radionuclide scintigraphy for sentinel node identification prior tosurgery. IMAGING: Scintigraphy after intradermal injection of radionuclide forsentinel lymph node mapping was performed. EXAM DATE AND TIME: 04/26/2025 8:35 AM HISTORY: Left breast cancer. Pre operative radionuclide sentinel lymphnode localization requested. PROCEDURE: Informed consent was obtained. A procedure pause was performed including patient identification using 3identifiers. Preprocedure imaging demonstrated: Known left breast cancer LATERALITY: LEFT Using sterile technique and following patient administered dermalapplication of topical anesthesia, intradermal injection of radionuclidewas performed. A 25-gauge needle was used at each site. A skin wheal was visualized. Radionuclide administered: Tc 99m filtered sulfur colloid DOSE: 0.819 mCi TECHNIQUE: A small aliquot of material was introduced into the skin in the12 o'clock, 3 o'clock, 6 o'clock and 9 o'clock positions at the areolarmargin. Upon completion of the procedure, pressure was applied until adequatehemostasis was obtained. The patient was advised to perform self massageto facilitate localization of the lymph channels and nodes. The patient tolerated the procedure well and was discharged in goodcondition after being educated regarding post procedure care andinstructions and contact information should she be concerned about acomplication. Postprocedure imaging: Was performed Laterality: LEFT FINDINGS: Activity is demonstrated in the expected region of the areola.There is activity in the upper outer left breast region. Difficult todetermine if this might represent the index malignancy area. No definite activity in the axilla at the time of imaging. IMPRESSION: Intradermal injection of radioactivity for purposes of lymph nodemapping. Imaging demonstrates activity in the upper outer breast. No evidence of immediate complication -------- FINAL REPORT -------- Dictated By: Tom Yanes Dictated Date: 04/26/2025 10:24 ET Assigned Physician: Tom Yanes Reviewed and Electronically Signed By: Tom Yanes Signed Date: 04/26/2025 10:38 ET Workstation ID: [id number] Transcribed By: Self Edit Transcribed Date: 04/26/2025 10:24 ET us Marciano Randall MD IMG NM PROCEDURES Final Result * MG Mammo Digital Diagnostic Clip Post US/MR Guide Left (04/25/2025 10:02 AM EST) Only the most recent of2 resultswithin the time period is included. Anatomical Region Laterality Modality Breast Left Mammography 04/25/2025 5:09 PM EST Impressions 04/25/2025 5:14 PM EST Ultrasound was used to localize and guide left breast preoperative localization marker placement. There was no evidence of immediate complication. Postprocedure mammography was performed RECOMMENDATION: Pathology pending for the left breast. -------- FINAL REPORT -------- Dictated By: Tom Yanes Dictated Date: 04/25/2025 17:09 ET Assigned Physician: Tom Yanes Reviewed and Electronically Signed By: Tom Yanes Signed Date: 04/25/2025 17:14 ET Workstation ID: [id number] Transcribed By: Self Edit Transcribed Date: 04/25/2025 17:09 ET Narrative 04/25/2025 5:14 PM EST EXAM: ULTRASOUND GUIDED BREAST SURGICAL SITE LOCALIZATION, LEFT PRE OPERATIVE MAG SEED PLACEMENT : Mag seed placement POSTPROCEDURE MAMMOGRAPHY: Was performed EXAM DATE AND TIME: 04/25/2025 9:08 AM HISTORY: Invasive ductal carcinoma left breast. Preoperative mag seed localization requested. PROCEDURE: Informed consent was obtained. A procedure pause was performed including patient identification using 3 identifiers. Preprocedure imaging demonstrated: An area of altered echotexture with an adjacent biopsy site marker in the 1 o'clock position 3 cm from the left nipple. It was decided to deploy the mag seed between the area of altered echotexture and the biopsy site marker. Using sterile technique and lidocaine anesthesia, ultrasound-guided surgical site localization of the left breast was performed from a lateral approach. An 18-gauge introducer was used. There was documentation of appropriate deployment of the preoperative localization device with digital archive. A radiopaque MAG SEED preoperative localization marker was deployed at the site for future reference. Upon completion of the procedure, pressure was applied until adequate hemostasis was obtained. The patient tolerated the procedure well and was discharged in good condition after being educated regarding post procedure care and instructions and contact information should she be concerned about a complication. Postprocedure mammography: Was performed Laterality: LEFT TISSUE DENSITY: There are scattered areas of fibroglandular density. (BI-RADS category B) FINDINGS: The surgical site marker, MAG SEED, appears appropriately positioned. There is no evidence of immediate complication. No new suspicious findings. Distance from surgical site localizing MAG SEED from Center of target: 0.3 cm from the mag seed to the biopsy site marker. I believe the mag seed is within the area of altered echotexture. Procedure Note Tom Yanes MD - 04/25/2025 EXAM: ULTRASOUND GUIDED BREAST SURGICAL SITE LOCALIZATION, LEFT PRE OPERATIVE MAG SEED PLACEMENT : Mag seed placement POSTPROCEDURE MAMMOGRAPHY: Was performed EXAM DATE AND TIME: 04/25/2025 9:08 AM HISTORY: Invasive ductal carcinoma left breast. Preoperative mag seedlocalization requested. PROCEDURE: Informed consent was obtained. A procedure pause was performed including patient identification using 3identifiers. Preprocedure imaging demonstrated: An area of altered echotexture with anadjacent biopsy site marker in the 1 o'clock position 3 cm from the leftnipple. It was decided to deploy the mag seed between the area of alteredechotexture and the biopsy site marker. Using sterile technique and lidocaine anesthesia, ultrasound-guidedsurgical site localization of the left breast was performed from a lateralapproach. An 18-gauge introducer was used. There was documentation of appropriatedeployment of the preoperative localization device with digital archive. A radiopaque MAG SEED preoperative localization marker was deployed at thete for future reference. Upon completion of the procedure, pressure was applied until adequatehemostasis was obtained. The patient tolerated the procedure well and was discharged in goodcondition after being educated regarding post procedure care andinstructions and contact information should she be concerned about acomplication. Postprocedure mammography: Was performed Laterality: LEFT TISSUE DENSITY: There are scattered areas of fibroglandular density.(BI-RADS category B) FINDINGS: The surgical site marker, MAG SEED, appears appropriatelypositioned. There is no evidence of immediate complication. No new suspicious findings. Distance from surgical site localizing MAG SEED from Center of target:0.3 cm from the mag seed to the biopsy site marker. I believe the magseed is within the area of altered echotexture. IMPRESSION: Ultrasound was used to localize and guide left breast preoperativelocalization marker placement. There was no evidence of immediate complication. Postprocedure mammography was performed RECOMMENDATION: Pathology pending for the left breast. -------- FINAL REPORT -------- Dictated By: Tom Yanes Dictated Date: 04/25/2025 17:09 ET Assigned Physician: Tom Yanes Reviewed and Electronically Signed By: Tom Yanes Signed Date: 04/25/2025 17:14 ET Workstation ID: [id number] Transcribed By: Self Edit Transcribed Date: 04/25/2025 17:09 ET us Marciano Randall MD IMG BI PROCEDURES Final Result * US Plcmnt Breast Seed Loc Dev 1st Lesion Left (04/25/2025 9:09 AM EST) Anatomical Region Laterality Modality Breast Left Ultrasound 04/25/2025 5:09 PM EST Impressions 04/25/2025 5:14 PM EST Ultrasound was used to localize and guide left breast preoperative localization marker placement. There was no evidence of immediate complication. Postprocedure mammography was performed RECOMMENDATION: Pathology pending for the left breast. -------- FINAL REPORT -------- Dictated By: oTm Yanes Dictated Date: 04/25/2025 17:09 ET Assigned Physician: Tom Yanes Reviewed and Electronically Signed By: Tom Yanes Signed Date: 04/25/2025 17:14 ET Workstation ID: [id number] Transcribed By: Self Edit Transcribed Date: 04/25/2025 17:09 ET Narrative 04/25/2025 5:14 PM EST EXAM: ULTRASOUND GUIDED BREAST SURGICAL SITE LOCALIZATION, LEFT PRE OPERATIVE MAG SEED PLACEMENT : Mag seed placement POSTPROCEDURE MAMMOGRAPHY: Was performed EXAM DATE AND TIME: 04/25/2025 9:08 AM HISTORY: Invasive ductal carcinoma left breast. Preoperative mag seed localization requested. PROCEDURE: Informed consent was obtained. A procedure pause was performed including patient identification using 3 identifiers. Preprocedure imaging demonstrated: An area of altered echotexture with an adjacent biopsy site marker in the 1 o'clock position 3 cm from the left nipple. It was decided to deploy the mag seed between the area of altered echotexture and the biopsy site marker. Using sterile technique and lidocaine anesthesia, ultrasound-guided surgical site localization of the left breast was performed from a lateral approach. An 18-gauge introducer was used. There was documentation of appropriate deployment of the preoperative localization device with digital archive. A radiopaque MAG SEED preoperative localization marker was deployed at the site for future reference. Upon completion of the procedure, pressure was applied until adequate hemostasis was obtained. The patient tolerated the procedure well and was discharged in good condition after being educated regarding post procedure care and instructions and contact information should she be concerned about a complication. Postprocedure mammography: Was performed Laterality: LEFT TISSUE DENSITY: There are scattered areas of fibroglandular density. (BI-RADS category B) FINDINGS: The surgical site marker, MAG SEED, appears appropriately positioned. There is no evidence of immediate complication. No new suspicious findings. Distance from surgical site localizing MAG SEED from Center of target: 0.3 cm from the mag seed to the biopsy site marker. I believe the mag seed is within the area of altered echotexture. Procedure Note Tom Yanes MD - 04/25/2025 EXAM: ULTRASOUND GUIDED BREAST SURGICAL SITE LOCALIZATION, LEFT PRE OPERATIVE MAG SEED PLACEMENT : Mag seed placement POSTPROCEDURE MAMMOGRAPHY: Was performed EXAM DATE AND TIME: 04/25/2025 9:08 AM HISTORY: Invasive ductal carcinoma left breast. Preoperative mag seedlocalization requested. PROCEDURE: Informed consent was obtained. A procedure pause was performed including patient identification using 3identifiers. Preprocedure imaging demonstrated: An area of altered echotexture with anadjacent biopsy site marker in the 1 o'clock position 3 cm from the leftnipple. It was decided to deploy the mag seed between the area of alteredechotexture and the biopsy site marker. Using sterile technique and lidocaine anesthesia, ultrasound-guidedsurgical site localization of the left breast was performed from a lateralapproach. An 18-gauge introducer was used. There was documentation of appropriatedeployment of the preoperative localization device with digital archive. A radiopaque MAG SEED preoperative localization marker was deployed at thete for future reference. Upon completion of the procedure, pressure was applied until adequatehemostasis was obtained. The patient tolerated the procedure well and was discharged in goodcondition after being educated regarding post procedure care andinstructions and contact information should she be concerned about acomplication. Postprocedure mammography: Was performed Laterality: LEFT TISSUE DENSITY: There are scattered areas of fibroglandular density.(BI-RADS category B) FINDINGS: The surgical site marker, MAG SEED, appears appropriatelypositioned. There is no evidence of immediate complication. No new suspicious findings. Distance from surgical site localizing MAG SEED from Center of target:0.3 cm from the mag seed to the biopsy site marker. I believe the magseed is within the area of altered echotexture. IMPRESSION: Ultrasound was used to localize and guide left breast preoperativelocalization marker placement. There was no evidence of immediate complication. Postprocedure mammography was performed RECOMMENDATION: Pathology pending for the left breast. -------- FINAL REPORT -------- Dictated By: Tom Yanes Dictated Date: 04/25/2025 17:09 ET Assigned Physician: Tom Yanes Reviewed and Electronically Signed By: Tom Yanes Signed Date: 04/25/2025 17:14 ET Workstation ID: [id number] Transcribed By: Self Edit Transcribed Date: 04/25/2025 17:09 ET us Marciano Randall MD IMG US PROCEDURES Final Result * ECG 12 lead - Procedural (No Charge) (04/12/2025 8:14 AM EST) Ventricular Rate ECG 54 BPM GEMUSE Atrial Rate 54 BPM GEMUSE P-R Interval 154 ms GEMUSE QRS Duration 90 ms GEMUSE Q-T Interval 404 ms GEMUSE QTc 383 ms GEMUSE P Wave [place] 65 degrees GEMUSE R [place] 28 degrees GEMUSE T [place] 40 degrees GEMUSE ECG Interpretation Sinus bradycardia Possible Left atrial enlargement No previous ECGs available Confirmed by CHAO THORNTON ([id number]) on 04/13/2025 5:32:00 AM GEMUSE 04/12/2025 8:14 AM EST 04/13/2025 5:32 AM EST Marciano Randall MD ECG ORDERABLES Final Result GEMUSE * External clinical lab (04/11/2025) Provider [facility] BLOOD ORDERABLES Fin al Result * Pap smear (04/06/2025 12:00 AM EST) Interpretation Negative for intraepithelial lesion or malignancy 04/11/2025 9:[address] [facility] at 0954 EST General Categorization Negative 04/11/2025 9:[address] [facility] Other Findings Shift in catracho suggestive of bacterial vaginosis 04/11/2025 9:[address] [facility] Specimen Adequacy Satisfactory for evaluation 04/11/2025 9:[address] [facility] Pap Methodology Liquid Based Pap Test 04/11/2025 9:[address] [facility] Disclaimer The Pap test is a screening test which carries an inherent false negative rate. These test results should be correlated with the patient's clinical findings and history. This Pap test was processed using an automated screening system. Technical cytopathology services provided by [facility], at [address] [place] [address] (CLIA # [id number]/Ronnell Santos MD, Nuclear Unit Operator.) 04/11/2025 9:54 AM EST [facility] Console Pap Interpretation Reported 04/11/2025 9:54 AM EST [facility] Brushing/Spatula Vaginal structure / Unknown 04/06/2025 04/07/2025 6:36 AM EST us Jayro Leon MD LAB CYTOLOGY ORDERABLES Final Result [facility] [address] [place] [address], [place] [phone] * (ABNORMAL) US Bx Breast Perc 1st Lesion Left (03/23/2025 7:43 AM EDT) Anatomical Region Laterality Modality Breast Left Ultrasound 03/23/2025 8:47 AM EDT Addenda Addendum by Tom Yanes MD on 03/28/2025 3:10 PM EDT Addendum: The final pathology results from the procedure are now available; DATE: 03/23/25 LOCATION: 1 o'clock position, 3 cm from left nipple ULTRASOUND-GUIDED FINAL PATHOLOGY RESULT: Final Diagnosis Breast, Left, 1:00 3cm FN, core biopsy (OPEN COIL): Invasive ductal carcinoma. ? Greatest length of carcinoma: 5mm Miami score: Grade 1 Glandular/tubular morphology: 1 Nuclear pleomorphism: 1 Mitotic rate: 1 In situ carcinoma: Not identified. Lymphovascular invasion: Not identified. CONCORDANCE: The final pathology results and imaging findings are concordant ASSESSMENT: BI-RADS 6: KNOWN BIOPSY-PROVEN MALIGNANCY RECOMMENDATION(S): 1: Surgical consultation recommended LEFT COMMUNICATION: Dr. Yanes notified the patient of the results and recommendations at approximately 1510 hours on 03/28/25 Addendum: BREAST DENSITY: B - There are scattered areas of fibroglandular density. BI-RADS CATEGORY: 6 - KNOWN BIOPSY-PROVEN MALIGNANCY RECOMMENDATION: Surgical consultation/management recommended for the left breast. -------- ADDENDUM -------- Dictated By: Tom Yanes Dictated Date: 03/28/2025 14:43 ET Assigned Physician: Tom Yanes Reviewed and Electronically Signed By: Tom Yanes Signed Date: 03/28/2025 15:10 ET Workstation ID: [id number] Transcribed By: Self Edit Transcribed Date: 03/28/2025 14:46 ET Impressions 03/23/2025 8:51 AM EDT ULTRASOUND was used to localize and guide left breast biopsy. ULTRASOUND was used to guide placement of a biopsy site marker. There was no evidence of immediate complication. Postprocedure mammography was performed. An addendum will be generated when the pathology results become available RECOMMENDATION: Pathology pending for the left breast. Location: [address], [address] -------- FINAL REPORT -------- Dictated By: Tom Yanes Dictated Date: 03/23/2025 08:47 ET Assigned Physician: Tom Yanes Reviewed and Electronically Signed By: Tom Yanes Signed Date: 03/23/2025 08:51 ET Workstation ID: [id number] Transcribed By: Self Edit Transcribed Date: 03/23/2025 08:47 ET Narrative 03/23/2025 8:51 AM EDT EXAM: ULTRASOUND GUIDED BREAST BIOPSY, LEFT BIOPSY SITE MARKER PLACEMENT : Biopsy site marker was placed POSTPROCEDURE MAMMOGRAPHY: Was performed EXAM DATE AND TIME: 03/23/2025 8:12 AM HISTORY: Suspicious area of altered echotexture in the left breast. Tissue diagnosis requested. PROCEDURE: Informed consent was obtained. A procedure pause was performed including patient identification using 3 identifiers. Preprocedure imaging demonstrated: 0.7 cm area of altered echotexture in the 1 o'clock position 3 cm from the left nipple Using sterile technique and lidocaine anesthesia, ultrasound-guided biopsy of the left breast was performed from a lateral approach. A 14 gauge Spring-loaded core biopsy device was used. There was documentation of appropriate needle placement with digital archive. SPECIMEN RADIOGRAPHY: Was not performed. 4 specimens were placed in formalin and submitted for pathologic evaluation. A radiopaque marker was deployed at the site for future reference. BIOPSY SITE MARKER SHAPE: OPEN COIL HYDROMARK Upon completion of the procedure, pressure was applied until adequate hemostasis was obtained. The patient tolerated the procedure well and was discharged in good condition after being educated regarding post procedure care and instructions and contact information should she be concerned about a complication. An addendum will be generated when the pathology results become available. Postprocedure mammography: Was performed Laterality: LEFT TISSUE DENSITY: There are scattered areas of fibroglandular density. (BI-RADS category B) FINDINGS: The biopsy site marker appears appropriately positioned. There is no evidence of immediate complication. No new suspicious findings. us Yaya JACOB IMG US PROCEDURES Edite d Result - Final * (ABNORMAL) US Breast Limited Left (03/17/2025 1:50 PM EDT) Anatomical Region Laterality Modality Breast Left Ultrasound 03/17/2025 1:27 PM EDT Impressions 03/17/2025 1:50 PM EDT Left breast mass. Recommend ultrasound-guided biopsy. Patient was notified of results and recommendation at time of the exam. BI-RADS CATEGORY: Mammography: 4 - SUSPICIOUS Ultrasound: 4 - SUSPICIOUS RECOMMENDATIONS: Core biopsy of left breast recommended. Mammo Location: [facility], [address] [place] [address], [id number], . -------- FINAL REPORT -------- Dictated By: Julia Waller Dictated Date: 03/17/2025 13:27 ET Assigned Physician: Julia Waller Reviewed and Electronically Signed By: Julia Waller Signed Date: 03/17/2025 13:50 ET Workstation ID: [id number] Transcribed By: Self Edit Transcribed Date: 03/17/2025 13:28 ET Narrative 03/17/2025 1:50 PM EDT CLINICAL: 60 years old, Female, routine annual exam. COMPARISON: Multiple prior studies dating back to 2019 FINDINGS: MAMMOGRAPHY TECHNIQUE: Unilateral left MLO, ML and CC views were obtained digitally with 3-D mammogram (digital breast tomosynthesis). Computer-aided detection was utilized in evaluation of this exam (CAD). There is a subtle area of architectural distortion in the left upper outer quadrant at 1 o'clock. No well-defined mass. No suspicious calcifications. Targeted ultrasound is recommended. BREAST DENSITY: B - There are scattered areas of fibroglandular density. ULTRASOUND TECHNIQUE: Targeted ultrasound evaluation of the left breast was performed. Targeted ultrasound of the left breast at 1 o'clock 3 cm from the nipple demonstrates a 7 mm irregular mass at 1 o'clock 3 cm from the nipple. Normal-appearing axillary lymph nodes. Procedure Note Julia Waller MD - 03/17/2025 CLINICAL: 60 years old, Female, routine annual exam. COMPARISON: Multiple prior studies dating back to 2019 FINDINGS: MAMMOGRAPHY TECHNIQUE: Unilateral left MLO, ML and CC views were obtained digitallywith 3-D mammogram (digital breast tomosynthesis). Computer-aideddetection was utilized in evaluation of this exam (CAD). There is a subtle area of architectural distortion in the left upper outerquadrant at 1 o'clock. No well-defined mass. No suspiciouscalcifications. Targeted ultrasound is recommended. BREAST DENSITY: B - There are scattered areas of fibroglandular density. ULTRASOUND TECHNIQUE: Targeted ultrasound evaluation of the left breast wasperformed. Targeted ultrasound of the left breast at 1 o'clock 3 cm from the nippledemonstrates a 7 mm irregular mass at 1 o'clock 3 cm from the nipple.Normal-appearing axillary lymph nodes. IMPRESSION: Left breast mass. Recommend ultrasound-guided biopsy. Patient wasnotified of results and recommendation at time of the exam. BI-RADS CATEGORY: Mammography: 4 - SUSPICIOUS Ultrasound: 4 - SUSPICIOUS RECOMMENDATIONS: Core biopsy of left breast recommended. Mammo Location: [facility], [address] [place] [address], [id number], . -------- FINAL REPORT -------- Dictated By: Julia Waller Dictated Date: 03/17/2025 13:27 ET Assigned Physician: Julia Waller Reviewed and Electronically Signed By: Julia Waller Signed Date: 03/17/2025 13:50 ET Workstation ID: [id number] Transcribed By: Self Edit Transcribed Date: 03/17/2025 13:28 ET us Yaya JACOB IMG US PROCEDURES Final Result * (ABNORMAL) MG Mammo Digital Diagnostic w Derrell Left (03/17/2025 1:46 PM EDT) Anatomical Region Laterality Modality Breast Left Mammography 03/17/2025 1:27 PM EDT Impressions 03/17/2025 1:50 PM EDT Left breast mass. Recommend ultrasound-guided biopsy. Patient was notified of results and recommendation at time of the exam. BI-RADS CATEGORY: Mammography: 4 - SUSPICIOUS Ultrasound: 4 - SUSPICIOUS RECOMMENDATIONS: Core biopsy of left breast recommended. Mammo Location: [facility], [address] [place] [address], [id number], . -------- FINAL REPORT -------- Dictated By: Julia Waller Dictated Date: 03/17/2025 13:27 ET Assigned Physician: Julia Waller Reviewed and Electronically Signed By: Julia Waller Signed Date: 03/17/2025 13:50 ET Workstation ID: [id number] Transcribed By: Self Edit Transcribed Date: 03/17/2025 13:28 ET Narrative 03/17/2025 1:50 PM EDT CLINICAL: 60 years old, Female, routine annual exam. COMPARISON: Multiple prior studies dating back to 2019 FINDINGS: MAMMOGRAPHY TECHNIQUE: Unilateral left MLO, ML and CC views were obtained digitally with 3-D mammogram (digital breast tomosynthesis). Computer-aided detection was utilized in evaluation of this exam (CAD). There is a subtle area of architectural distortion in the left upper outer quadrant at 1 o'clock. No well-defined mass. No suspicious calcifications. Targeted ultrasound is recommended. BREAST DENSITY: B - There are scattered areas of fibroglandular density. ULTRASOUND TECHNIQUE: Targeted ultrasound evaluation of the left breast was performed. Targeted ultrasound of the left breast at 1 o'clock 3 cm from the nipple demonstrates a 7 mm irregular mass at 1 o'clock 3 cm from the nipple. Normal-appearing axillary lymph nodes. Procedure Note Julia Waller MD - 03/17/2025 CLINICAL: 60 years old, Female, routine annual exam. COMPARISON: Multiple prior studies dating back to 2019 FINDINGS: MAMMOGRAPHY TECHNIQUE: Unilateral left MLO, ML and CC views were obtained digitallywith 3-D mammogram (digital breast tomosynthesis). Computer-aideddetection was utilized in evaluation of this exam (CAD). There is a subtle area of architectural distortion in the left upper outerquadrant at 1 o'clock. No well-defined mass. No suspiciouscalcifications. Targeted ultrasound is recommended. BREAST DENSITY: B - There are scattered areas of fibroglandular density. ULTRASOUND TECHNIQUE: Targeted ultrasound evaluation of the left breast wasperformed. Targeted ultrasound of the left breast at 1 o'clock 3 cm from the nippledemonstrates a 7 mm irregular mass at 1 o'clock 3 cm from the nipple.Normal-appearing axillary lymph nodes. IMPRESSION: Left breast mass. Recommend ultrasound-guided biopsy. Patient wasnotified of results and recommendation at time of the exam. BI-RADS CATEGORY: Mammography: 4 - SUSPICIOUS Ultrasound: 4 - SUSPICIOUS RECOMMENDATIONS: Core biopsy of left breast recommended. Mammo Location: [facility], [address] [place] [address], [id number], . -------- FINAL REPORT -------- Dictated By: Julia Waller Dictated Date: 03/17/2025 13:27 ET Assigned Physician: Julia Waller Reviewed and Electronically Signed By: Julia Waller Signed Date: 03/17/2025 13:50 ET Workstation ID: [id number] Transcribed By: Self Edit Transcribed Date: 03/17/2025 13:28 ET Yaya JACOB IMG BI PROCEDURES Final Result * (ABNORMAL) MG Mammo Digital Screening w Derrell bilat (02/24/2025 7:10 AM EDT) Anatomical Region Laterality Modality Breast Bilateral Mammography 02/24/2025 7:45 AM EDT Impressions 02/24/2025 7:56 AM EDT Distortion in the 1 o'clock position 3 cm from the left nipple. Recommend diagnostic left mammography and targeted left breast ultrasound. ASSESSMENT: BI-RADS 0: INCOMPLETE - need additional imaging evaluation and/or prior mammograms for comparison RECOMMENDATION(S): 1: Special mammographic view(s) needed (breast with targeted left breast ultrasound with attention to the 1 o'clock position 3 cm from left nipple. [facility] location[facility] [address], [id number] -------- FINAL REPORT -------- Dictated By: Tom Yanes Dictated Date: 02/24/2025 07:45 ET Assigned Physician: Tom Yanes Reviewed and Electronically Signed By: Tom Yanes Signed Date: 02/24/2025 07:56 ET Workstation ID: [id number] Transcribed By: Self Edit Transcribed Date: 02/24/2025 07:45 ET Narrative 02/24/2025 7:56 AM EDT EXAM: SCREENING MAMMOGRAPHY, BILATERAL HISTORY: SCREENING. No additional history. COMPARISON: 02/17/24, 02/12/23, 02/08/22, 08/03/21, 01/25/21 TECHNIQUE: Synthesized CC and MLO projections of each breast. Tomosynthesis of each breast in the CC and MLO projections. ADDITIONAL IMAGING: None Computer-aided detection was employed with the [employer] 3-D. TISSUE DENSITY: There are scattered areas of fibroglandular density. (BI-RADS category B) FINDINGS: RIGHT BREAST: No suspicious mass. No suspicious calcification. No distortion. No additional suspicious right breast findings LEFT BREAST: There is an area of architectural distortion in the 1 o'clock position 3 cm from the left nipple. No additional suspicious left breast findings Procedure Note Tom Yanes MD - 02/24/2025 EXAM: SCREENING MAMMOGRAPHY, BILATERAL HISTORY: SCREENING. No additional history. COMPARISON: 02/17/24, 02/12/23, 02/08/22, 08/03/21, 01/25/21 TECHNIQUE: Synthesized CC and MLO projections of each breast.Tomosynthesis of each breast in the CC and MLO projections. ADDITIONAL IMAGING: None Computer-aided detection was employed with the [employer] 3-D. TISSUE DENSITY: There are scattered areas of fibroglandular density.(BI-RADS category B) FINDINGS: RIGHT BREAST: No suspicious mass. No suspicious calcification. No distortion. Noadditional suspicious right breast findings LEFT BREAST: There is an area of architectural distortion in the 1 o'clock position 3cm from the left nipple. No additional suspicious left breast findings IMPRESSION: Distortion in the 1 o'clock position 3 cm from the left nipple. Recommend diagnostic left mammography and targeted left breastultrasound. ASSESSMENT: BI-RADS 0: INCOMPLETE - need additional imaging evaluation and/or priormammograms for comparison RECOMMENDATION(S): 1: Special mammographic view(s) needed (breast with targeted left breastultrasound with attention to the 1 o'clock position 3 cm from leftnipple. [facility]amm[facility] location: [facility] [address], [address] -------- FINAL REPORT -------- Dictated By: Tom Yanes Dictated Date: 02/24/2025 07:45 ET Assigned Physician: Tom Yanes Reviewed and Electronically Signed By: Tom Yanes Signed Date: 02/24/2025 07:56 ET Workstation ID: [id number] Transcribed By: Self Edit Transcribed Date: 02/24/2025 07:45 ET Yaya JACOB IM BI PROCEDURES Final Result * Lipid panel with reflex to direct LDL (01/14/2025 8:45 AM EDT) Cholesterol 152 0 - 200 mg/dL LAB CHEMISTRY METHOD 01/14/2025 1:48 PM EDT [facility] Triglycerides 67 0 - 150 mg/dL LAB CHEMISTRY METHOD 01/14/2025 1:48 PM EDT [facility] HDL 90 >=40 mg/dL LAB CHEMISTRY METHOD 01/14/2025 1:48 PM EDT [facility] LDL Calculated 49 0 - 100 mg/dL LAB CHEMISTRY METHOD 01/14/2025 1:48 PM EDT [facility] Comment:Estimated LDL Calcul ated using equation: Total cholesterol - HDL cholesterol - (Triglycerides/5) VLDL Cholesterol Dax 13.4 mg/dL LAB CHEMISTRY METHOD 01/14/2025 1:48 PM EDT [facility] Non HDL Chol. (LDL+VLDL) 62 <145 mg/dL LAB CHEMISTRY METHOD 01/14/2025 1:48 PM EDT [facility] Chol/HDL Ratio 1.7 0.0 - 4.4 LAB CHEMISTRY METHOD 01/14/2025 1:48 PM EDT [facility] Blood Venous blood specimen / Unknown Venipuncture / Unknown 01/14/2025 8:45 AM EDT 01/14/2025 8:45 AM EDT Yaya JACOB LAB BLOOD ORDERABLES Fi nal Result [facility] [address] [place] [address], * COLONOSCOPY Anesthesia - MAC; [facility] ENDOSCOPY (01/13/2025 9:42 AM EDT) Anatomical Region Laterality Modality Endoscopy 01/13/2025 9:28 AM EDT Impressions 01/13/2025 9:43 AM EDT - The entire examined colon is normal on direct and retroflexion views. - No specimens collected. Recommendation: - Discharge patient to home. - Repeat colonoscopy in 10 years for screening purposes. Narrative 01/13/2025 9:43 AM EDT [facility] Patient Name: Jazmin Jakc Procedure Date: 01/13/2025 9:28 AM Date of [...] verified by the physician, the nurse, the agricultural services director and the pm technician in the pre-procedure area in the [...] malignant neoplasm of colon CPT copyright 2020 [employer]. All rights reserved. The codes documented in this report are preliminary and upon postal support employee review may be revised to meet current compliance requirements. Yandel Bernstein MD 01/13/2025 9:43:03 AM This report has been signed electronically.Yandel Bernstein MD Number of Addenda: 0 Note Initiated On: 01/13/2025 9:28 AM Scope Withdrawal Time: 0 hours 6 minutes 5 seconds Scope In: 9:33:10 AM Scope Out: 9:43:33 AM Endoscopy Department at [facility] - [address] [place] [id number] Procedure Note Yandel Bernstein MD - 01/13/2025 [facility] GI Patient Name: Jazmin Jack Procedure Date: [...] the physician, the nurse, theanesthetist and the pm technician in the pre-procedure area in the [...] for malignantneoplasm of colon CPT copyright 2020 [employer]. All rights reserved. The codes documented in this report are preliminary and upon postal support employee reviewmay be revised to meet current compliance requirements. Yandel Bernstein MD 01/13/2025 9:43:03 AM This report has been signed electronically.Yandel Bernstein MD Number of Addenda: 0 Note Initiated On: 01/13/2025 9:28 AM Scope Withdrawal Time: 0 hours 6 minutes 5 seconds Scope In: 9:33:10 AM Scope Out: 9:43:33 AM Endoscopy Department at [address] [id number] IMPRESSION: - The entire examined colon is normal on direct and retroflexion views. - No specimens collected. Recommendation: - Discharge patient to home. - Repeat colonoscopy in 10 years for screening purposes. Yandel Bernstein MD GI~PROCEDURE ORDERABLES Fin al Result from Last 3 Months or Most Recently Relevant to Health Maintenance Insurance [facility] Advance Directives * Full Code - Default (Latest Code Status on File) Date Activated Date Inactivated Comments 04/26/2025 7:50 AM 04/26/2025 6:14 PM This is or ruthie is used when code status has not been discussed with the patient, or code status is otherwise unknown/unconfirmed To update the patient's code status, place a code status order. Do not modify or discontinue any currently active code status orders. Care Teams [employer] Installer Relationship Specialty Start Date End Date Arti Griffiths DO [address] [place] [address] [place] [address] PCP - General 03/09/24
== END 2025-05-05 08:22 | disposition home or self-care (01) ==
LOC: HO.HAP 08:21
PROVIDERS: Visit Provider Nurse Practitioner
DX: H90.3 Sensorineural hearing loss, bilateral (principal)
CPT/HCPCS: 92593